=== PATIENT | male | born 1960 | race Caucasian/White ===

== ENCOUNTER 2018-11-30 12:17 | Inpatient (IN) ==
[2018-11-30] MEDS ORDERED: GLUCOSE 10 TABS/TUBE PO PRN (17:44)
[2018-11-30] MEDS ORDERED: NITROGLYCERIN SL 0.4 MG/TAB TAB SL PRN (17:44)
[2018-11-30] MEDS ORDERED: ACETAMINOPHEN 325 MG TAB PO PRN (17:44)
[2018-11-30] MEDS ORDERED: GLUCOSE 40% GEL 15 GM TUBE PO PRN (17:44)
[2018-11-30] MEDS ORDERED: ALUMINUM/MAGNESIUM SUSP 30 ML UDC PO PRN (17:44)
[2018-11-30] MEDS ORDERED: GLUCAGON FOR INJ 1 MG VIAL SQ PRN (17:44)
[2018-11-30] MEDS ORDERED: MAGNESIUM HYDROXIDE SUSP 30 ML UDC PO PRN (17:44)
[2018-11-30] MEDS ORDERED: CARBOHYDRATES FOR HYPOGLYCEMIA PO PRN (17:44)
[2018-11-30] MEDS ORDERED: POLYETHYLENE (MIRALAX) 17 GM PACK PO PRN (17:44)
[2018-11-30] MEDS ORDERED: ONDANSETRON INJ 2 MG/ML 2 ML VIAL IV PRN (17:44)
[2018-11-30] MEDS ORDERED: DEXTROSE 50% 50 ML SYRINGE IV PRN (17:44)
[2018-11-30 18:16] LABS: Basophils # (auto) 0.02 K/uL (0-0.2); Basophils % (auto) 0.1 %; Eosinophils # (auto) 0.01 K/uL (0-0.5); Eosinophils % (auto) 0.1 %; Hematocrit (blood only) 41.6 % (42-52); Immature Granulocytes # (auto) 0.05 K/uL (0.00-0.02); Immature Granulocytes % (auto) 0.3 %; Lymphocytes # (auto) 0.53 K/uL (1.2-3.4); Lymphocytes % (auto) 3.3 %; Mean Corpuscular Hemoglobin 30.3 pg (25-34); Mean Corpuscular Hgb Conc 33.7 g/dL (32-36); Mean Platelet Volume 8.7 fL (7.4-10.4); Monocytes # (auto) 0.04 K/uL (0.11-0.59); Monocytes % (auto) 0.2 %; Neutrophils # (auto) 15.42 K/uL (1.4-6.5); Platelet Count 250 K/uL (130-400); RDW Coefficient of Variation 14.2 % (11.5-14.5); RDW Standard Deviation 46.4 fL (36.4-46.3); Red Blood Count 4.62 M/uL (4.7-6.1); White Blood Count 16.07 K/uL (4.8-10.8)
[2018-11-30] MEDS ORDERED: cloNIDine HCL 0.1 MG TAB PO PRN (18:26)
[2018-11-30 18:33] LABS: Albumin Level 1.5 gm/dl (3.4-5.0); Calcium 7.8 mg/dl (8.5-10.1); Creatinine Clr Calc Pharmacy 35.4 ml/min; Est GFR (African American) 34.1; Est GFR (Non-African American) 29.4; Magnesium 2.2 mg/dl (1.8-2.4); Potassium 3.2 mmol/L (3.5-5.1)
--- NOTE | 2018-11-30 18:34 | History & Physical Report ---
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 At [facility] per reports patient was significantly hypertensive with systolic blood pressure greater than 200s, elevated proBNP 6169, elevated d-dimer 1.3, creatinine 2.2, W BC 12.2, H&H 13.1 40.0 Troponin WNL and chest x-ray without acute abnormality, ecg NSR w/o ST wave change Due to elevated creatinine CTA chest not performed, patient was recommended for transfer to [facility] Lab work obtained at our facility revealed WBC 16k, elevated trop 0.115, BNP 7594, Bun 24, Cr 2.35, K 3.2 Ddx but not limited to: Acute decompensated CHF, ACS, progression of nephrotic syndrome, cardiomyopathy, amyloidosis, bronchitis, asthma exac, ADR to drug brilinta, among others Pt admitted to [facility] tele Troponin at OSH 0.05, now 0.115 (also elevated d-dimer and inability to perform CTA given cr) start low dose IV heparin echocardiogram ordered cycle troponin and ecg consult cardiology CXR ordered - await results bilateral lower extremity venous doppler VQ scan for elevated dimer clonidine 0.1mg prn for SBP > 160 (3) Hypokalemia: K 3.2 give 40meq x 1 now maintain K >4.0 given hx of CAD and elevated troponin (4) Elevated WBC count: pt afebrile wbc at OSH was 12k, now 16k He did receive steroids SHAKE FEEDER afebrile, CXR pending monitor closely, check procal (5) CAD (coronary artery disease), [place] coronary artery: hx of PCI in 08/2018 and 2006 on ASA, Brilinta, Atenolol losartan recently d/c due to progressive worse GFR pt admits to not being compliant with above medications (6) HTN (hypertension): blood pressure significantly elevated continue atenolol clonidine prn (7) CKD (chronic kidney disease) stage 3, GFR 30-59 ml/min: Baseline creatinine 1.5, has been climbing to 2.3-2.5 BUN/creatinine 24 and 2.35 today Patient has been following with nephrology Dr. Adame due to progressively worse kidney function, GFR and significant proteinuria Recently had losartan, metformin and amlodipine discontinued due to worsening renal function hx of membranous glomerular nephritis in 2003 he had edema and proteinuria and high cholesterol. At that time had renal biopsy and treated with brief course of steroid. Had extensive outpatient testing including hep B, C, HIV, Bence-Grant protein, immunofixation, complement C4, C3, c-ANCA, p-ANCA, ASHOK. Work-up mostly negative except elevated kappa and lambda Patient is being referred to hematology for further work-up of myeloma (8) Elevated TSH: TSH 7.55, Free T4 0.65 no prior outpt comparison may be elevated in setting of acute illness recommend repeat in 2 weeks (9) Asthma: continue advair place on duoneb qid, incentive spirometry received 125mg IV solumedrol at OSH ED CXR ordered (10) Dyslipidemia, goal LDL below 70: Patient intolerant to statins On Repatha injections as outpatient Last cholesterol panel 11/12 revealed elevated total cholesterol 233, LDL 159, HDL 49, glycerides 193 (11) T2DM (type 2 diabetes mellitus): A1c 11/12 was 6.3 Now off metformin due to elevated creatinine Lantus/novolog per protocol expect elevated glucose given steroid at OSH (12) ASHLEE (obstructive sleep apnea): noncompliant with cpap (13) Abnormal CT scan, chest: CT scan 07/29/18: IMPRESSION 4.7 cm ascending thoracic aortic aneurysm. Mediastinal adenopathy. Mild bilateral central peribronchial thickening. Incompletely characterized liver hypodensities and left renal hypodensity. Right paravertebral soft tissue thickening at the level of the mid thorax Questionable wall thickening of the coronary arteries. Asymmetric appearance of the pancreas. Differential diagnosis includes a multi systemic disorder like IgG4 disease. Lymphoma is also a consideration. Recommend CT of the chest abdomen and pelvis with IV Recommend follow up (14) DVT prophylaxis: SCD/TEDS IV heparin Disposition: admit to [facility] tele Follow up: PCP Dr. Kendrick upon discharge; along with appropriate follow up with Nephrology Patient was seen and examined in collaboration with Dr. Foster, please see addendum Starting 12/01/18 patient will be under the care of Dr. Valdez History of Present Illness Chief Complaint: LEYVA x 6-9 months. 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 and daughter are at bedside patient initially presented to ED this morning secondary significant increased shortness of breath and inability to catch breath. Upon arrival to ED patient was noted to have significantly elevated blood pressure systolically greater than 200, EKG revealed normal sinus rhythm, elevated creatinine 2.2, elevated d-dimer 1.5, elevated BNP 6000. Chest x-ray unremarkable. Unable to obtain CTA of chest given elevated creatinine. Patient was recommended for transfer due to the above. He did receive DuoNeb therapy, IV methylprednisolone and IV hydralazine while in the ED. Patient complains of worsening shortness of breath that has been becoming progressively worse over the past 6 to 9 months. As noted above patient had PCI in 08/2018 due to abnormal stress echo. He was hopeful that after having stent placed his symptoms would improve. He had similar symptoms back in 2006 prior to his previous stent, and after stent felt much improved. This time he has been continuing to have progressive dyspnea on exertion as well as shortness of breath at rest. He has easy fatigability even with little activity. 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 Even using a broom makes him short of breath. Over the past 4 days he has noticed increased sinus congestion, rhinorrhea and moist cough, but unable to produce. He has felt feverish and had night sweats. Complains of increased lower extremity edema that is present all day, not improved in a.m. Denies any significant weight loss or weight gain. Denies orthopnea but does complain PND. Denies documented fever, chills, lightheadedness, dizziness, syncope, chest pain, palpitations, hemoptysis, nausea, vomiting, abdominal pain, dysuria, increased urgency or frequency with urination, hematuria, melena, hematochezia. He admits to being noncompliant with his medications. Only taking aspirin 3 times a week, has been intermittently taking Brilinta. He has also been taking atenolol off-and-on secondary to headaches. He takes his Advair intermittently, but has been using albuterol nebulizer treatment at home more frequently. He uses nebulizer treatment this morning prior to being seen at ED, without significant relief. He has not been taking anything [id number]. Allergies Allergy/AdvReac Type Severity Reaction Status Date / Time No Known Allergies Allergy Verified 08/20/18 09:34 Home Medications Home Medications Medication Instructions Recorded Confirmed Type Karen Garnica See Rx Instructions .ROUTE .COMPLEX 08/19/18 11/30/18 History albuterol sulfate [ProAir HFA] 2 puff INHALATION Q6H PRN 08/19/18 11/30/18 History aspirin [Aspir-81] 81 mg PO MOWEFR 08/19/18 11/30/18 History fluticasone propion-salmeterol 1 inh INHALATION BID 08/19/18 11/30/18 History [Advair Diskus] fluticasone propionate [Flonase 2 spray INTRANASAL DAILY 08/19/18 11/30/18 History Allergy Relief] metformin 500 mg PO DAILY 08/19/18 11/30/18 History ticagrelor [Brilinta] 90 mg PO BID #60 tab 08/21/18 11/30/18 Rx atenolol 25 mg PO BID 11/30/18 11/30/18 History Past Med/Surg History Medical History History of left heart catheterization History of membranous glomerulonephritis Asthma ASHLEE (obstructive sleep apnea) T2DM (type 2 diabetes mellitus) AAA (abdominal aortic aneurysm) Ascending aortic aneurysm 4.5 cm; followed by Cardiology Dyslipidemia, goal LDL below 70 HTN (hypertension) Presence of drug-eluting stent in left circumflex coronary artery CAD (coronary artery disease), [place] coronary artery Surgical History Status post insertion of drug-eluting stent into left anterior descending (LAD) artery Family History Mother Cancer Father Lung disease Social History Preferred Language: [place] Communication Ability: Effective Children'S Counselor Required: No Beliefs That Will Affect Care: None Current Living Situation: Spouse current occupational status: employed current occupation: works as flexographic printing machinist Other Information That Helps Us Care for You: No Feels Safe at Home: Yes Safety Concerns: Feels Safe At This Time Smoking Status: Never smoker Hx Alcohol Use: No Hx Substance Use: No Review of Systems Review of Systems: All systems reviewed & are unremarkable except as noted in HPI & below Physical Exam Physical Exam: Constitutional: WD/WN, vitals as above, M, appears ill, NAD, sitting up in bed, pleasant, conversing easily Head: Normocephalic, Atraumatic Eyes: PERRL, conjunctivae normal, anicteric sclerae ENMT: external ear and nose normal, oropharynx normal Neck: trachea midline, no thyromegaly normal visual inspection Respiratory: normal respiratory effort, lungs clear to auscultation with inspiratory and expiratory wheeze/rhonchi throughout, no prolonged expiratory phase,no rales. Normal insp/exp effort, no accessory muscle use on 2L of O2 via NC Cardiovascular: RRR, no murmur, +1 pretibial edema R >L Vessels: no JVD or carotid bruit Chest: normal inspection of chest Abdomen: normal bowel sounds, soft, nontender, no hepatosplenomegaly Musculoskeletal: no cyanosis or clubbing, extremities motor strength 5/5 Skin: no rashes, warm and dry normal turgor Neurologic: PERRL, EOMI, accommodation nl, no face palsy, no dysarthria CN's II-XI intact bilaterally and moves all extremities Psychiatric: A+Ox3, euthymic affect Lymphatic: no cervical or axillary lymphadenopathy : deferred Results & Data Vital Signs (Past 12 Hours) Vital Signs Temp Pulse Pulse Resp BP Pulse Ox 11/30/18 16:14 110 H 11/30/18 16:09 36.6 C 116 H 22 134/91 96 Laboratory Results Short CBC 11/30/18 Range/Units 18:07 WBC 16.07 H (4.8-10.8) K/uL Hgb 14.0 (14.0-18.0) g/dL Hct 41.6 L (42-52) % Plt Count 250 (130-400) K/uL BMP 11/30/18 18:07 Sodium 142 Potassium 3.2 L Chloride 112 H Carbon Dioxide 21 BUN 24 H Creatinine 2.35 H Glucose 228 H Calcium 7.8 L Cardiac Enzymes 11/30/18 Range/Units 18:07 Troponin I 0.115 H* (0-0.045) ng/ml Liver Function 11/30/18 Range/Units 18:07 Total Bilirubin 0.3 (0.2-1) mg/dl AST 16 (15-37) U/L ALT 13 (12-78) U/L Alkaline Phosphatase 60 (45-117) U/L Albumin 1.5 L (3.4-5.0) gm/dl Diagnostic Findings CXR: pending Code Status & VTE Plan VTE Prophylaxis Plan VTE Prophylaxis will be ordered: Yes Supervising Physician Co-Signing Physician Notes HISTORY: Record reviewed. Patient interviewed and examined in his room. Care coordinated with Lorna Patten PA-C; please refer to her note for detailed documentation for patient's history. Briefly, 58-year-old male with history of ischemic heart disease (status post PCI of LAD and obtuse marginal with drug-eluting stents in August 2018), hypertension, asthma, sleep apnea, diabetes mellitus, CKD, possible gammopathy, and other problems as detailed. Presented to [facility]'s ED earlier today complaining of worsening dyspnea over past week. He feels like he has had a cold with some chest congestion and nonproductive cough. No fever. Notes dyspnea on exertion, but no chest pain / pressure. Has also noted dependent edema that developed over the past week. Transferred to [facility] for further evaluation and management. Comfortable at time of my assessment. No chest pain. No dyspnea at rest. EXAM: General- no distress Lungs- diffuse mild wheezing; no respiratory distress Cardiovascular- RRR; tachycardic; no murmur appreciated; no gallop appreciated; slight JVD; 1+ pretibial edema Abdomen- + bowel sounds, soft, nontender Extremities- no cyanosis; no calf tenderness Neuro- alert, oriented Skin- warm & dry DATA: Hemoglobin 14.0, white count 16,070, platelet count 250,000. Sodium 142, potassium 3.2, chloride 112, CO2 21, BUN 24, creatinine 2.35, random glucose 228. Troponin I = 0.115. BNP = 7594. Albumin 1.5. Globulin 5.2. Albumin/globulin ratio 0.3. TSH 7.55. Free T4 0.65. Other lab studies as noted. Chest x-ray reviewed by the undersigned and formally interpreted by Radiology. No apparent infiltrates, effusions, CHF. EKG performed at 20:[address] at 104 / minute, biphasic T- waves V4-5. ASSESSMENT AND PLAN: Patient experiencing dyspnea on exertion. Underlying coronary artery disease with drug-eluting stents to LAD and obtuse marginal in August 2018. Patient indicates that he may not be taking his antiplatelet medications on a regular basis. Troponin slightly elevated. EKG shows biphasic T waves in lateral precordial leads. Must consider myocardial ischemia. History, exam, and elevated BNP suggest CHF, but not apparent on plain films of chest. 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 Hematology consult pending. Consider amyloidosis. Has albuminuria. May have nephrotic syndrome. D-dimer elevated at [facility]. Best not to pursue CTA of chest in light of elevated creatinine. Venous duplex of lower extremities negative for DVT. V/Q scan ordered. IV heparin will be initiated in light of elevated d-dimer with pending V/Q and possibility of an acute coronary syndrome. Continue antiplatelet therapy with aspirin and ticagrelor. Continue atenolol. Receiving evolocumab. Check lipid profile. Check echo. Consult Cardiology. CKD with worsening renal function and albuminuria being followed by Nephrology. Hematology consultation pending regarding possible gammopathy. Avoid potential nephrotoxins when able. Consult Nephrology if any acute concerns. Serum potassium 3.2. Replace, follow. Diabetes mellitus type 2 managed with metformin. Check hemoglobin A1c. Hold metformin during hospital stay. Lantus/NovoLog per protocol. TSH 7.55 with a free T4 of 0.65. No history of hypothyroidism. TFTs may be abnormal due to acute illness. Start low-dose levothyroxine and follow as outpatient. WBC elevated. Received methylprednisolone at [facility]. No apparent indication for antibiotics at this time. Please refer to ADAM Patten's documentation for discussion of other issues. (1) CAD (coronary artery disease), [place] coronary artery Associated angina: with stable angina [place] vs. transplanted heart: [place] heart Qualified Code(s): I25.118 - Atherosclerotic heart disease of [place] coronary artery with other forms of angina pectoris (2) HTN (hypertension) Hypertension type: essential hypertension Qualified Code(s): I10 - Essential (primary) hypertension
[2018-11-30 18:48] LABS: Albumin Globulin Ratio 0.3 (0.9-2); Bilirubin,Total 0.3 mg/dl (0.2-1); Globulin 5.2 gm/dl (2.5-4.0); Phosphorus 3.2 mg/dl (2.5-4.9); Thyroid Stimulating Hormone 7.55 uIu/ml (0.300-4.500); Total Protein 6.7 gm/dl (6.4-8.2); Troponin I 0.115 ng/ml (0-0.045)
[2018-11-30 19:04] LABS: T4 Free Thyroxine 0.65 ng/dl (0.8-1.6)
[2018-11-30] MEDS ORDERED: POTASSIUM CHLORIDE 20 MEQ TABCR PO STA (19:12)
--- NOTE | 2018-11-30 19:48 | Ultrasound Report ---
BILATERAL LOWER EXTREMITY VENOUS DOPPLER HISTORY: Lower extremity edema, elevated d dimer COMPARISON STUDY: None. FINDINGS: There is normal compressibility, flow, and augmentation within the bilateral lower extremit y deep venous systems. IMPRESSION: No DVT within the right or left lower extremity. Electronically signed by: Damien Cano M.D. 11/30/2018 7:47 PM
[2018-11-30] MEDS: ALBUT/IPRATROP 3MG/0.5MG NEB 3 ML VIAL NEB SCH (19:50)
--- NOTE | 2018-11-30 20:07 | XRay Report ---
XR chest 2V routine HISTORY: Shortness of breath. COMPARISON: None. FINDINGS: The heart is normal in size. No pleural effusions. No pneumothorax. No evidence for pulmona ry edema. A few small bibasilar linear densities consistent with subsegmental atelectasis or scarring . Otherwise, the lungs are clear. No focal lung consolidations to suggest pneumonia. IMPRESSION: No acute process. Electronically signed by: Damien Cano M.D. 11/30/2018 8:05 PM
[2018-11-30] MEDS ORDERED: INSULIN GLARGINE SOLOSTAR 100 UNITS/ML 3 ML PEN SC SCH (21:00)
[2018-11-30] MEDS ORDERED: POTASSIUM CHLORIDE 20 MEQ TABCR PO ONE (21:14)
[2018-11-30] MEDS: HEPARIN SODIUM/DEXTROSE 25,000 UNITS/500 ML BAG IV SCH (21:21)
[2018-11-30] MEDS: INSULIN ASPART 100 UNITS/ML 3 ML PEN SC SCH ×2 (21:24→21:32)
[2018-11-30] MEDS: FLUTICASONE/SALMETEROL 250/50 (ADVAIR) 14 PUFF/1 INHALER INH SCH (21:26)
[2018-11-30] MEDS: TICAGRELOR 90 MG TAB PO SCH (21:33)
[2018-11-30] MEDS: ATENOLOL 25 MG TABLET PO SCH (21:34)
[2018-12-01 04:00] LABS: Partial Thromboplastin Ratio 1.1; Partial Thromboplastin Time 29.7 Seconds (21.0-31.0)
[2018-12-01 05:14] LABS: Partial Thromboplastin Ratio 1.1; Partial Thromboplastin Time 29.6 Seconds (21.0-31.0)
[2018-12-01] MEDS ORDERED: HEPARIN IV BOLUS 4,500 UNITS in SYRINGE 0 ML IV ONE ×2 (05:50→12:00)
[2018-12-01] MEDS: LEVOTHYROXINE SODIUM 25 MCG TABLET PO SCH (06:11)
[2018-12-01 06:51] LABS: Basophils # (auto) 0.02 K/uL (0-0.2); Basophils % (auto) 0.1 %; Hematocrit (blood only) 38.5 % (42-52); Hemoglobin 12.8 g/dL (14.0-18.0); Immature Granulocytes # (auto) 0.08 K/uL (0.00-0.02); Immature Granulocytes % (auto) 0.4 %; Lymphocytes # (auto) 1.26 K/uL (1.2-3.4); Lymphocytes % (auto) 6.4 %; Mean Corpuscular Hemoglobin 29.6 pg (25-34); Mean Corpuscular Hgb Conc 33.2 g/dL (32-36); Mean Corpuscular Volume 88.9 fL (80-100); Monocytes # (auto) 0.65 K/uL (0.11-0.59); Monocytes % (auto) 3.3 %; Neutrophils # (auto) 17.82 K/uL (1.4-6.5); Neutrophils % (auto) 89.8 %; Platelet Count 246 K/uL (130-400); RDW Coefficient of Variation 14.3 % (11.5-14.5); RDW Standard Deviation 46.6 fL (36.4-46.3); Red Blood Count 4.33 M/uL (4.7-6.1); White Blood Count 19.83 K/uL (4.8-10.8)
[2018-12-01] MEDS: ALBUT/IPRATROP 3MG/0.5MG NEB 3 ML VIAL NEB SCH ×4 (07:06→19:13)
[2018-12-01 07:25] LABS: BUN Creatinine Ratio 14.1 (10-20); Creatinine Clr Calc Pharmacy 35.7 ml/min; Est GFR (African American) 34.4; Est GFR (Non-African American) 29.7; Potassium 4.1 mmol/L (3.5-5.1); Troponin I 0.098 ng/ml (0-0.045)
[2018-12-01] MEDS: Heparin IV Low Dose *NO* Bolus IV SCH (07:45)
[2018-12-01] MEDS: FLUTICASONE/SALMETEROL 250/50 (ADVAIR) 14 PUFF/1 INHALER INH SCH ×2 (08:58→21:06)
[2018-12-01] MEDS: INSULIN ASPART 100 UNITS/ML 3 ML PEN SC SCH ×4 (08:58→21:05)
[2018-12-01] MEDS: INSULIN GLARGINE SOLOSTAR 100 UNITS/ML 3 ML PEN SC SCH ×2 (08:59→21:05)
[2018-12-01] MEDS: FLUTICASONE PROPIONATE NA SPR 16 GM BTL SCH (09:00)
[2018-12-01] MEDS: TICAGRELOR 90 MG TAB PO SCH ×2 (09:01→21:07)
[2018-12-01] MEDS: ATENOLOL 25 MG TABLET PO SCH (09:01)
[2018-12-01 09:47] LABS: Appearance Urine Clear (Clear); Bacteria Urine Automated Negative (Negative); Bilirubin Urine Negative (Negative); Blood Urine 2+ (Negative); Color Urine Yellow; Epithelial Cell Urine Auto >30 /lpf (0-5); Glucose Urine UA 2+ (Negative); Ketones Urine Negative (Negative); Leukocyte Esterase Urine Negative (Negative); Nitrite Urine Negative (Negative); Protein Urine 4+ (Negative); Specific Gravity Urine 1.029 (1.000-1.030); Urobilinogen Urine Negative (Negative); pH Urine 6.5 (4.5-7.5)
[2018-12-01 11:36] LABS: Partial Thromboplastin Ratio 1.5; Partial Thromboplastin Time 39.6 Seconds (21.0-31.0)
[2018-12-01] MEDS: HEPARIN SODIUM/DEXTROSE 25,000 UNITS/500 ML BAG IV SCH ×2 (12:17→18:42)
--- NOTE | 2018-12-01 13:42 | Cardiology Consultation ---
Date of Consultation December 01, 2018 Assessment & Plan (1) Shortness of breath: Patient short of breath with elevated d-dimer. Unable to perform a CT angiogram due to renal insufficiency, and therefore a ventilation/perfusion scan is tentatively planned, but due to availability of nuclear medicine, will likely not be performed until 12/02/2018. Patient remains on heparin infusion in the meantime. I am not certain that his presentation is suggestive of unstable angina. He has a mild however blunted, troponin elevation, and his EKG actually looks better compared to the tracing performed immediately post PCI. Subjectively, describes that the shortness of breath that prompted his LAD and circumflex stents in August, has not improved. I question if perhaps his chronic dyspnea is been exacerbated by the use of Brilinta, and when I think we need to consider transitioning him to clopidogrel. The patient is also had issues with adherence. He tells me he has been taking the Brilinta with only missing a few doses, perhaps once a day dosing of clopidogrel would be easier for him to follow. The patient's mild troponin elevation of course takes place in the setting of renal insufficiency, which makes this troponin elevation difficult to interpret. Agree with continuing him on heparin until PE is excluded, and pending further observation. Chest x-ray is without significant change to suggest heart failure, and his ejection fraction and grade 1 diastolic dysfunction are stable compared to the prior echo in Jul, 2018. (2) CAD (coronary artery disease), [place]da coronary artery: Continue aspirin and Brilinta for now, will discuss transitioning him from Brilinta to clopidogrel when Dr. Winston is available tomorrow. (3) History of membranous glomerulonephritis: Patient with recent worsening renal function, previous baseline creatinine had been in the range of 1.5-6 up to a month ago, now in the range of 2.40 2.5 mg/dL. I see no definite indication for diuretic therapy at present. Losartan on hold as per recommendations documented in the outpatient nephrology notes. Outpatient hematology evaluation planned for elevated kappa and lambda chains. Patient's recent edema could very well be due to his nephrotic range proteinuria. Recent serum albumin was 1.5 on 11/30/2018 . (4) HTN (hypertension): Patient has a history of uncontrolled hypertension as well as long- standing this nonadherence of medications. Given his renal insufficiency, I have discontinued atenolol, favoring metoprolol tartrate. The patient has expressed intolerance of this medication in the past. I encouraged him that I think this is the best medication for him as it is cardiac selective, and safe in patients with kidney dysfunction. The patient's losartan had recently been discontinued due to worsening creatinine. He had been on amlodipine 2.5 mg daily, which given his recent lower extremity edema, this is been placed on hold. At this time, we will place him on short acting isosorbide dinitrate and hydralazine. The patient has a photograph of his legs taken yesterday and they were significantly edematous, this has resolved as of today. History of Present Illness Attending Physician: King Valdez MD History of Present Illness Michael Joseph is a 58 year old male seen in cardiology consultation per the request of Dr Foster for the evaluation of shortness of breath. The patient is well- known to our service. His primary radiation oncologist is Dr. Drew Winston, however I had also previously seen him in Jul, 2018 at the time of an abnormal stress echocardiogram. The patient presents describing recent lower extremity edema, and shortness of breath over the last few days. Approximately 4 days ago he came down with what he describes as cold symptoms with feeling cough and runny nose and worsening shortness of breath. Yesterday he noted significant lower extremity edema and therefore he presented for evaluation to [facility] and was then transferred to [facility] as his recent cardiac care had been here. He denies any recent chest heaviness or chest pain. He describes ongoing shortness of breath with exertion which has actually been ongoing for well over a year and had prompted his most recent ischemic evaluation. He states that the shortness of breath had not improved since placement of his recent LAD and circumflex coronary stents. Cardiac / Vascular History and Problem List: 1. Chronic coronary heart disease, status post stent to the proximal LAD in 2006, this was patent with 30% in-stent restenosis at the time of most recent cardiac catheterization at the [facility] in August, 2. Abnormal exercise stress echocardiogram 07/29/2018 suggestive of ischemia which prompted cardiac catheterization 08/20/2017 with findings of 80% mid LAD stenosis, 90% obtuse marginal stenosis both of which were treated with drug- eluting stents. A residual 90% stenosis of diagonal branch #2 of the LAD has been treated medically 3. Uncontrolled hypertension 4. 4.7 cm ascending thoracic aortic aneurysm most recently measured on noncontrast CT of the chest 08/13/2018, [facility] 5. 3.2 cm abdominal aortic aneurysm 6. Chronic kidney disease with history of remote diagnosis of membranous glomerulonephritis, 9 g of proteinuria, and recent decline in kidney function. Patient's calculated GFR has been in the range of 47 to 50 mL/min/m, creatinine 1.5-1.6 at the time of his cardiac catheterization in August,, and most recently on 10/18/2018, has recently worsened as of November with measurement of creatinine of 2.4 on 11/25/2018, calculated GFR 28 mL/min/m 7. Recent finding of abnormal serum kappa and lambda levels on recent levels drawn 11/14/18, nephrology had recommended hematology evaluation which has yet to have been performed. Allergies Allergy/AdvReac Type Severity Reaction Status Date / Time No Known Allergies Allergy Verified 08/20/18 09:34 Home Medications Home Medications Medication Instructions Recorded Confirmed Type Karen Garnica See Rx Instructions .ROUTE .COMPLEX 08/19/18 11/30/18 History albuterol sulfate [ProAir HFA] 2 puff INHALATION Q6H PRN 08/19/18 11/30/18 History aspirin [Aspir-81] 81 mg PO MOWEFR 08/19/18 11/30/18 History fluticasone propion-salmeterol 1 inh INHALATION BID 08/19/18 11/30/18 History [Advair Diskus] fluticasone propionate [Flonase 2 spray INTRANASAL DAILY 08/19/18 11/30/18 History Allergy Relief] metformin 500 mg PO DAILY 08/19/18 11/30/18 History ticagrelor [Brilinta] 90 mg PO BID #60 tab 08/21/18 11/30/18 Rx atenolol 25 mg PO BID 11/30/18 11/30/18 History Patient History Medical History History of left heart catheterization History of membranous glomerulonephritis Asthma ASHLEE (obstructive sleep apnea) T2DM (type 2 diabetes mellitus) AAA (abdominal aortic aneurysm) Ascending aortic aneurysm 4.5 cm; followed by Cardiology Dyslipidemia, goal LDL below 70 HTN (hypertension) Presence of drug-eluting stent in left circumflex coronary artery CAD (coronary artery disease), [place] coronary artery Surgical History Status post insertion of drug-eluting stent into left anterior descending (LAD) artery Family History Mother Cancer Father Lung disease Social History Preferred Language: Romansh Communication Ability: Effective Social Services Counselor Required: No Beliefs That Will Affect Care: None Current Living Situation: Spouse current occupational status: employed current occupation: works as through operator Other Information That Helps Us Care for You: No Feels Safe at Home: Yes Safety Concerns: Feels Safe At This Time Smoking Status: Never smoker Hx Alcohol Use: No Hx Substance Use: No Review of Systems Review of Systems: All systems reviewed & are unremarkable except as noted in HPI & below Physical Exam Physical Exam: Temp Pulse Resp BP Pulse Ox 36.8 C 83 18 148/79 H 95 12/01/18 11:00 12/01/18 11:01 12/01/18 11:01 12/01/18 11:00 12/01/18 11:01 Constitutional: WD/WN, vitals as above Respiratory: normal respiratory effort, lungs clear to auscultation Cardiovascular: RRR, no murmur, no edema Gastrointestinal (Abdomen): normal bowel sounds, soft, nontender, no hepatosplenomegaly Skin: no rashes, warm and dry Neurologic: PERRL, EOMI, accommodation nl, no face palsy, no dysarthria Results & Data Vital Signs (Past 12 Hours) Vital Signs Temp Pulse Resp BP Pulse Ox 12/01/18 11:01 83 18 95 12/01/18 11:00 36.8 C 79 18 148/79 H 98 12/01/18 10:42 93 12/01/18 07:06 87 18 97 12/01/18 07:00 36.6 C 83 20 167/98 H 100 12/01/18 04:00 36.5 C 86 20 156/90 H 96 Laboratory Results Cardiac Enzymes 11/30/18 12/01/18 12/01/18 Range/Units 18:07 00:20 06:28 AST 16 (15-37) U/L Troponin I 0.115 H* 0.114 H* 0.098 H* (0-0.045) ng/ml Coagulation 12/01/18 12/01/18 12/01/18 Range/Units 03:27 04:52 11:13 APTT 29.7 29.6 39.6 H (21.0-31.0) Seconds Lipids 12/01/18 Range/Units 06:28 Triglycerides 77 (0-150) mg/dl Cholesterol 171 (0-200) mg/dl HDL Cholesterol 59 mg/dl Cholesterol/HDL Ratio 3 CBC 11/30/18 12/01/18 Range/Units 18:07 06:28 WBC 16.07 H 19.83 H (4.8-10.8) K/uL RBC 4.62 L 4.33 L (4.7-6.1) M/uL Hgb 14.0 12.8 L (14.0-18.0) g/dL Hct 41.6 L 38.5 L (42-52) % Plt Count 250 246 (130-400) K/uL Neut # (Auto) 15.42 H 17.82 H (1.4-6.5) K/uL Lymph # (Auto) 0.53 L 1.26 (1.2-3.4) K/uL [place] # (Auto) 0.04 L 0.65 H (0.11-0.59) K/uL Eos # (Auto) 0.01 0.00 (0-0.5) K/uL Baso # (Auto) 0.02 0.02 (0-0.2) K/uL Comprehensive Metabolic Panel 11/30/18 12/01/18 Range/Units 18:07 06:28 Sodium 142 143 (136-145) mmol/L Potassium 3.2 L 4.1 D (3.5-5.1) mmol/L Chloride 112 H 112 H (98-107) mmol/L Carbon Dioxide 21 22 (21-32) mmol/L BUN 24 H 33 H (7-18) mg/dl Creatinine 2.35 H 2.33 H (0.6-1.4) mg/dl Glucose 228 H 144 H (70-99) mg/dl Calcium 7.8 L 8.0 L (8.5-10.1) mg/dl AST 16 (15-37) U/L ALT 13 (12-78) U/L Alkaline Phosphatase 60 (45-117) U/L Total Protein 6.7 (6.4-8.2) gm/dl Albumin 1.5 L (3.4-5.0) gm/dl Intake and Output 11/30/18 12/01/18 12/01/18 22:59 06:59 14:59 Intake Total 894.533 / 894.533 151.1 / 151.1 Balance 894.533 / 894.533 151.1 / 151.1 Intake: IV 154.533 / 154.533 151.1 / 151.1 HEPARIN SODIUM/DEXTROSE 25,000 154.533 / 154.533 151.1 / 151.1 units In 500 ml @ 1,250 UNITS/ HR 25 mls/hr IV .Q20H LUIS ENRIQUE Rx#: [id number] Oral 740 / 740 Other: Weight 86.1 kg 87.3 kg Diagnostic Findings EKG performed 11/30/2018 at 2026 hrs. reveals sinus tachycardia 104 bpm, biphasic T wave morphology noted in the lateral precordial leads, compared to the prior EKG tracing performed post stent on 08/20/2018, more prominent deep T wave inversions were noted in the lateral leads at that time. EKG performed 12/01/2018 6:37 AM and reviewed independently normal sinus rhythm at 84 bpm, mild nonspecific ST abnormality with T wave inversion noted in lead V2 and V4, once again less prominent than his immediate post stent EKG performed in August,. Echocardiogram performed 12/01/2018 and reviewed independently by the undersigned: There is a small sized inferior wall motion abnormality encompassing the basal and mid segments The left ventricular systolic function is in the lower limit of normal with qualitative ejection fraction in the range of 50-55%. The right ventricular chamber size and systolic function are normal. Mild mitral regurgitation is present. Grade 1 diastolic dysfunction is present. There is no pericardial effusion. Compared to the report of the exercise stress echocardiogram performed at [facility] dated 07/29/2018 the subtle inferior wall motion abnormality was noted at rest at the time of that study as well the ejection fraction is relatively unchanged. Medications Administered Current Inpatient Medications Acetaminophen (Tylenol) 325 mg PO Q6H PRN PRN Reason: Pain or Fever Stop: 12/30/18 17:43 Al Hydrox/Mg Hydrox/Simethicone (Maalox) 15 ml PO Q4H PRN PRN Reason: Dyspepsia Stop: 12/30/18 17:43 Albuterol (Duoneb) 3 ml NEB QIDR LUIS ENRIQUE Stop: 12/30/18 18:59 Last Admin: 12/01/18 11:00 Dose: 3 ml Documented by: Aspirin (Ecotrin Ectab) 81 mg PO MoWeFr@0900 [facility] Stop: 01/01/19 08:59 Atenolol (Tenormin) 25 mg PO BID [facility] Stop: 12/30/18 20:59 Last Admin: 12/01/18 09:01 Dose: 25 mg Documented by: Clonidine HCl (Catapres) 0.1 mg PO Q4H PRN PRN Reason: Hypertension Stop: 12/30/18 18:25 Dextrose (Dextrose 50%) 25 - 50 ml IV UD PRN; Protocol PRN Reason: Hypoglycemia Protocol Stop: 12/30/18 17:43 Fluticasone Propionate (Flonase) 2 sprays NA DAILY [facility] Stop: 12/31/18 08:59 Last Admin: 12/01/18 09:00 Dose: 2 sprays Documented by: Glucagon (Glucagen) 1 mg SQ UD PRN; Protocol PRN Reason: Hypoglycemia Protocol Stop: 12/30/18 17:43 Glucose (Glucose 40%) 15 - 30 gm PO UD PRN; Protocol PRN Reason: Hypoglycemia Protocol Stop: 12/30/18 17:43 Glucose (Dex4 Glucose) 4 - 8 tabs PO UD PRN; Protocol PRN Reason: Hypoglycemia Protocol Stop: 12/30/18 17:43 Heparin Sodium/Dextrose (Heparin Sodium/Dextrose) 25,000 units in 500 mls @ 25 mls/hr IV .Q20H LUIS ENRIQUE; Protocol Stop: 12/30/18 18:59 Last Admin: 12/01/18 12:17 Dose: 1,250 units/hr, 25 mls/hr Documented by: Insulin Aspart (Novolog Flexpen) 0 units SC ACHS [facility] Stop: 12/30/18 17:59 Last Admin: 12/01/18 12:19 Dose: 9 units Documented by: Insulin Glargine (Lantus Solostar Pen) 0 units SC BID [facility]; Protocol Stop: 12/30/18 20:59 Last Admin: 12/01/18 08:59 Dose: 4 units Documented by: Levothyroxine Sodium (Synthroid) 25 mcg PO DAILYBB [facility] Stop: 12/31/18 06:29 Last Admin: 12/01/18 06:11 Dose: 25 mcg Documented by: Magnesium Hydroxide (Milk Of Magnesia) 30 ml PO Q12H PRN PRN Reason: Constipation Stop: 12/30/18 17:43 Miscellaneous (Carbohydrates For Hypoglycemia) 15 - 30 gm PO UD PRN PRN Reason: Hypoglycemia Treatment Stop: 12/30/18 17:43 Nitroglycerin (Nitrostat) 0.4 mg SL UD PRN PRN Reason: Chest Pain Stop: 12/30/18 17:43 Ondansetron HCl (Zofran) 4 mg IV Q6H PRN PRN Reason: Nausea Stop: 12/30/18 17:43 Polyethylene Glycol (Miralax Powder Packet) 17 gm PO DAILY PRN PRN Reason: Constipation Stop: 12/30/18 17:43 Fluticasone/Salmeterol (Advair Diskus 250/50) 1 puffs INH BID [facility] Stop: 12/30/18 20:59 Last Admin: 12/01/18 08:58 Dose: 1 puffs Documented by: Ticagrelor (Brilinta) 90 mg PO BID [facility] ENRI[facility] Stop: 12/30/18 20:59 Last Admin: 12/01/18 09:01 Dose: 90 mg Documented by: (1) CAD (coronary artery disease), [place]opda coronary artery [place] vs. transplanted heart: [place] heart Associated angina: with stable angina Qualified Code(s): I25.118 - Atherosclerotic heart disease of [place]choop[place] coronary artery with other forms of angina pectoris (2) HTN (hypertension) Hypertension type: essential hypertension Qualified Code(s): I10 - Essential (primary) hypertension
[2018-12-01] MEDS: ISOSORBIDE DINITRATE 5 MG TAB PO SCH ×2 (14:25→18:04)
[2018-12-01] MEDS: HydrALAZINE 10 MG TAB PO SCH ×2 (14:25→21:06)
--- NOTE | 2018-12-01 16:24 | Hospitalist Progress Note ---
Date of Service December 01, 2018 Assessment & Plan (1) Shortness of breath: -multiple differentials were proposed at time of hospital presentation which patient was transferred from [facility] on 11/30/18 to [facility] -to summarize, this is a patient whose chief complaint with shortness of breath on moderate exertion (such as moderate activities such as walking the distance from driveway to house or when putting bags into the car) -patient has cardiac history included cardiac stents and cardiology consult was consulted -because patient had initial elevated troponins of 0.115 (which has not gotten any higher and no apparent chest pain) admitting hospitalist team started patient on IV heparin and because of elevated D-Dimer at [facility] also proposed to rule out pulmonary embolism but CTA cannot be performed due to Chronic kidney disease -The is No DVT within the right or left lower extremity on 11/30/18 ultrasound -V/Q scan that was ordered by admitting team could not be performed until Sunday12/01/18;if pulmonary embolism is ruled out on Sunday12/01/18, cardiology service may potentially do further invasive workup -at this time of evaluation on 12/01/18, patient's resting echocardiogram on 12/01/18 with relatively normal ejection fraction of 50 to 55% with subtle inferior wall motion abnormality that was also noted on outpatient exercise stress test in July -will continue IV heparin drip for now but should stop if no pulmonary embolism as cardiology service does not suspect unstable angina at this time -chronic dyspnea may be exacerbated by the use of Brilinta and cardiology may consider to transition him to clopidogrel, continued on Brillinta for now -advise patient to be adherent to CPAP for obstructive sleep apnea as below (2) ASHLEE (obstructive sleep apnea): -patient apparently had been evaluated in the past for obstructive sleep apnea but he no longer used it after one time he got respiratory infection from CPAP and because the mask was very tight and the positive pressure made it hard for him to breathe. He is willing to try CPAP in the hospital (3) CAD (coronary artery disease), [place] coronary artery: -Chronic coronary heart disease, status post stent to the proximal LAD in 2006, this was patent with 30% in-stent restenosis at the time of most recent cardiac catheterization at the [facility] in August, -Abnormal exercise stress echocardiogram 07/29/2018 suggestive of ischemia which prompted cardiac catheterization 08/20/2017 with findings of 80% mid LAD stenosis, 90% obtuse marginal stenosis both of which were treated with drug- eluting stents. A residual 90% stenosis of diagonal branch #2 of the LAD has been treated medically -medical workup for dyspnea as above Aortic Aneurysm -as per cardiology consultation review: -4.7 cm ascending thoracic aortic aneurysm most recently measured on noncontrast CT of the chest 08/13/2018, [facility] -3.2 cm abdominal aortic aneurysm (4) Elevated troponin: -patient had initial elevated troponins of 0.115 (which has not gotten any higher and no apparent chest pain) (5) Asthma: continue advair place on duoneb qid, incentive spirometry (6) Dyslipidemia, goal LDL below 70: -Patient intolerant to statins -On Repatha injections as outpatient -lipid panel on this admission with improved LDL of 93 (7) Elevated TSH: Hypothyroidism suspected -TSH 7.55, Free T4 0.65, no prior outpatient comparison -recommend repeat in 2 weeks -if these repeat labs are still with abnormally high TSH and low T4 then can consider a diagnosis of Hypothyroidism -was started on 25 mcg Levothyroxine by admitting hospitalist, continue (8) Elevated WBC count: Leukocytosis -patient received steroids at [facility] prior to hospital transfer to [facility] for which the admission WBC is 16K -WBC uptrending to 23 K on 12/01/18, is afebrile to date (9) HTN (hypertension): -cardiology switched beta barbra from atenolol to metoprolol -cardiology started hydralazine 10 mg TID and isosorbide 5 mg TID (10) CKD (chronic kidney disease) stage 3, GFR 30-59 ml/min: Membranous glomerulonephritis -Chronic kidney disease with history of remote diagnosis of membranous glomerulonephritis, 9 g of proteinuria, and recent decline in kidney function. Patient's calculated GFR has been in the range of 47 to 50 mL/min/m, creatinine 1.5-1.6 at the time of his cardiac catheterization in August,, and most recently on 10/18/2018, has recently worsened as of November with measurement of creatinine of 2.4 on 11/25/2018, calculated GFR 28 mL/min/m -Patient has been following with nephrology Dr. Mainali due to progressively worse kidney function, GFR and significant proteinuria Recently had losartan, metformin and amlodipine discontinued due to worsening renal function -hx of membranous glomerular nephritis in 2003 he had edema and proteinuria and high cholesterol. At that time had renal biopsy and treated with brief course of steroid. Had extensive outpatient testing including hep B, C, HIV, Bence-Grant protein, immunofixation, complement C4, C3, c-ANCA, p-ANCA, ASHOK. Work-up mostly negative except elevated kappa and lambda Patient is being referred to hematology for further work-up of myeloma -monitor renal function (11) Abnormal CT scan, chest: CT scan 07/29/18 comments of "4.7 cm ascending thoracic aortic aneurysm; Mediastinal adenopathy. Mild bilateral central peribronchial thickening; Incompletely characterized liver hypodensities and left renal hypodensity; Right paravertebral soft tissue thickening at the level of the mid thorax;Questionable wall thickening of the coronary arteries; Asymmetric appearance of the pancreas; Differential diagnosis includes a multi systemic disorder like IgG4 disease. Lymphoma is also a consideration." (12) T2DM (type 2 diabetes mellitus): HbA1c 11/12 was 6.3 -Lantus/novolog per protocol -hold metformin, monitor renal function (13) Hypokalemia: -admission serum potassium 3.2 on 11/30/18 -hypokalemia is corrected after potassium supplementation (14) DVT prophylaxis: Subjective Patient seen earlier in AM on nasal cannula. when re-assessed in afternoon, patient breathing on room air. his at bedside and corroborates that main respiratory issues is dyspnea on exertion with moderate activities such as walking the distance from driveway to house or when putting bags into the car. patient denies chest pain. no abdomen pain. no headache. no dizziness. no vomiting patient's also points out patient often gags at night. patient apparently had been evaluated in the past for obstructive sleep apnea but he no longer used it after one time he got respiratory infection from CPAP and because the mask was very tight and the positive pressure made it hard for him to breathe. He is willing to try CPAP in the hospital Physical Exam Constitutional: comfortable Eyes: PERRL, conjunctivae normal, anicteric sclerae EOM intact bilaterally ENMT: external ear and nose normal, oropharynx normal Neck: normal visual inspection Respiratory: normal respiratory effort, lungs clear to auscultation Cardiovascular: Rate/Rhythm: regular rate and regular rhythm Gastrointestinal (Abdomen): normal bowel sounds, soft, nontender, no hepatosplenomegaly Musculoskeletal: Head/Neck/Chest: normocephalic and head atraumatic Neurologic: PERRL, EOMI, accommodation nl, no face palsy, no dysarthria CN's II-XI intact bilaterally Psychiatric: A+Ox3, euthymic affect Results & Data Vital Signs (Past 12 Hours) Vital Signs Temp Pulse Resp BP Pulse Ox 12/01/18 15:34 36.7 C 85 19 146/89 H 98 12/01/18 15:10 80 18 93 12/01/18 11:01 83 18 95 12/01/18 11:00 36.8 C 79 18 148/79 H 98 12/01/18 10:42 93 12/01/18 07:06 87 18 97 12/01/18 07:00 36.6 C 83 20 167/98 H 100 (1) CAD (coronary artery disease), [place] coronary artery Associated angina: with stable angina [place] vs. transplanted heart: [place] heart Qualified Code(s): I25.118 - Atherosclerotic heart disease of [place] coronary artery with other forms of angina pectoris (2) HTN (hypertension) Hypertension type: essential hypertension Qualified Code(s): I10 - Essential (primary) hypertension
[2018-12-01 18:28] LABS: Partial Thromboplastin Ratio 1.6; Partial Thromboplastin Time 42.1 Seconds (21.0-31.0)
[2018-12-01] MEDS ORDERED: HEPARIN IV BOLUS 3,000 UNITS in SYRINGE 0 ML IV ONE (19:00)
[2018-12-01] MEDS: METOPROLOL TARTRATE 25 MG TAB PO SCH (21:07)
[2018-12-02 02:19] LABS: Basophils # (auto) 0.03 K/uL (0-0.2); Basophils % (auto) 0.1 %; Eosinophils # (auto) 0.08 K/uL (0-0.5); Eosinophils % (auto) 0.4 %; Hematocrit (blood only) 35.1 % (42-52); Hemoglobin 11.9 g/dL (14.0-18.0); Immature Granulocytes % (auto) 0.5 %; Lymphocytes # (auto) 2.92 K/uL (1.2-3.4); Lymphocytes % (auto) 13.4 %; Mean Corpuscular Hemoglobin 30.4 pg (25-34); Mean Corpuscular Hgb Conc 33.9 g/dL (32-36); Mean Corpuscular Volume 89.8 fL (80-100); Monocytes # (auto) 0.83 K/uL (0.11-0.59); Monocytes % (auto) 3.8 %; Neutrophils # (auto) 17.86 K/uL (1.4-6.5); Neutrophils % (auto) 81.8 %; Platelet Count 236 K/uL (130-400); RDW Coefficient of Variation 14.8 % (11.5-14.5); Red Blood Count 3.91 M/uL (4.7-6.1); White Blood Count 21.82 K/uL (4.8-10.8)
[2018-12-02 02:37] LABS: Albumin Level 1.4 gm/dl (3.4-5.0); BUN Creatinine Ratio 15.8 (10-20); Calcium 7.3 mg/dl (8.5-10.1); Creatinine Clr Calc Pharmacy 32.7 ml/min; Est GFR (Non-African American) 26.8; Potassium 3.9 mmol/L (3.5-5.1)
[2018-12-02 02:40] LABS: Albumin Globulin Ratio 0.3 (0.9-2); Bilirubin,Total 0.2 mg/dl (0.2-1); Globulin 4.4 gm/dl (2.5-4.0); Total Protein 5.8 gm/dl (6.4-8.2)
[2018-12-02 02:49] LABS: Partial Thromboplastin Ratio 1.8
[2018-12-02 03:07] LABS: Partial Thromboplastin Time 47.6 Seconds (21.0-31.0)
[2018-12-02 05:49] LABS: Estimated Average Glucose 137 mg/dl; Hemoglobin A1C 6.4 % (4.5-5.6)
[2018-12-02] MEDS: ISOSORBIDE DINITRATE 5 MG TAB PO SCH ×3 (06:33→17:22)
[2018-12-02] MEDS: LEVOTHYROXINE SODIUM 25 MCG TABLET PO SCH (06:33)
[2018-12-02 06:34] LABS: Partial Thromboplastin Ratio 1.6
[2018-12-02] MEDS ORDERED: HEPARIN IV BOLUS 3,000 UNITS in SYRINGE 0 ML IV ONE ×2 (07:15→14:50)
[2018-12-02] MEDS: ALBUT/IPRATROP 3MG/0.5MG NEB 3 ML VIAL NEB SCH ×3 (07:17→15:10)
[2018-12-02] MEDS: INSULIN GLARGINE SOLOSTAR 100 UNITS/ML 3 ML PEN SC SCH ×2 (08:24→20:58)
[2018-12-02] MEDS: TICAGRELOR 90 MG TAB PO SCH (08:25)
[2018-12-02] MEDS: METOPROLOL TARTRATE 25 MG TAB PO SCH ×2 (08:25→20:55)
[2018-12-02] MEDS: FLUTICASONE PROPIONATE NA SPR 16 GM BTL SCH (08:25)
[2018-12-02] MEDS: FLUTICASONE/SALMETEROL 250/50 (ADVAIR) 14 PUFF/1 INHALER INH SCH ×2 (08:26→20:55)
[2018-12-02] MEDS: HydrALAZINE 10 MG TAB PO SCH ×3 (08:26→20:55)
[2018-12-02] MEDS: INSULIN ASPART 100 UNITS/ML 3 ML PEN SC SCH ×4 (08:28→20:57)
[2018-12-02] MEDS ORDERED: ASPIRIN 81 MG ECTAB PO SCH (09:00)
--- NOTE | 2018-12-02 09:17 | Cardiology Progress Note ---
Date of Service December 02, 2018 Assessment & Plan (1) Shortness of breath: Patient admitted with dyspnea on exertion with associated lower extremity edema. Echocardiogram is stable with minimally elevated troponin not indicative of acute coronary syndrome. Perfusion/ventilation scan scheduled today. Continue intravenous heparin until results are available. (2) CAD (coronary artery disease), [place] coronary artery: Discontinue Brilinta in favor of clopidogrel 75 mg daily. Patient will receive 300 mg x 1 now. (3) History of membranous glomerulonephritis: Worsening renal function noted (baseline 1.4, now 2.4-2.5). Outpatient hematology evaluation scheduled December 24 for evaluation of elevated kappa and lambda chains. Edema likely secondary to nephrotic range proteinuria with most recent serum albumin 1.4. Losartan discontinued per direction of nephrology. No overt indication for diuretic therapy currently Recommend nephrology consultation. (4) HTN (hypertension): Multiple medication instituted 12/01/2018 changes as noted above. We will continue to monitor today. Consider titration of metoprolol to 50 mg twice daily pending clinical course. Subjective Patient seen and examined the bedside. Feeling better since admission. Denies chest pain or unusual shortness of breath today. Edema markedly improved. No signs/symptoms of GI/ blood loss. Medication alterations instituted since admission including discontinuation of atenolol, and amlodipine. Patient prescribed metoprolol, hydralazine and nitrates. Blood pressure remains elevated. VQ scan pending at this time. Telemetry reviewed demonstrating sinus rhythm and one brief, 6 beat priti, of paroxysmal atrial tachycardia. Patient denies orthopnea or paroxysmal nocturnal dyspnea. Attempted to wear CPAP overnight however found to be quite uncomfortable. Diagnosed with sleep apnea approximately 13 years ago and was unable to wear CPAP due to claustrophobia. Review of Systems Review of Systems: All systems reviewed & are unremarkable except as noted in HPI & below Physical Exam Physical Exam: General: NAD, AAO x3, well nourished. HEENT: Normocephalic. Atraumatic. Conjunctiva pink, no scleral icterus. Neck: No carotid bruits, the carotid upstrokes are brisk. No JVD. No HJR Heart: Regular normal S-1 and S-2 no S-3 or S-4 gallop. No murmurs or rub appreciated. PMI is not displaced. No RV heave. Lungs: Clear bilateral without rales , rhonchi, or wheeze. Abdomen: Normal bowel sounds. Soft. Nontender. No masses or organomegaly. No abdominal bruits. Extremities: Trace to mild bilateral pedal and ankle edema. No clubbing, or cyanosis. Pulses: radial=2/4, Dorsalis pedis =2/4, posterior tibial=2/4. Neuro: Cranial nerves grossly intact. No focal motor deficit. Results & Data Vital Signs (Past 12 Hours) Vital Signs Temp Pulse Pulse Pulse Resp BP BP 12/02/18 07:26 36.7 C 76 18 165/87 H 12/02/18 07:19 86 12/02/18 07:17 44 L 16 12/02/18 04:30 36.3 C L 71 18 162/84 H 12/01/18 23:42 36.6 C 77 20 155/89 H 12/01/18 23:13 78 12/01/18 23:06 82 12/01/18 21:15 82 14 Pulse Ox 12/02/18 07:26 12/02/18 07:19 12/02/18 07:17 95 12/02/18 04:30 94 12/01/18 23:42 94 12/01/18 23:13 12/01/18 23:06 12/01/18 21:15 97 Laboratory Results Laboratory Results - last 24 hr 12/01/18 12/01/18 12/01/18 06:28 09:15 11:13 WBC RBC Hgb Hct MCV MCH MCHC RDW Std Deviation RDW Coeff of Britney Plt Count MPV Immature Gran % (Auto) Neut % (Auto) Lymph % (Auto) [place] % (Auto) Eos % (Auto) Baso % (Auto) Immature Gran # (Auto) Neut # (Auto) Lymph # (Auto) [place] # (Auto) Eos # (Auto) Baso # (Auto) APTT 39.6 H PTT Ratio 1.5 Sodium Potassium Chloride Carbon Dioxide Anion Gap BUN Creatinine Est Cr Clr Drug Dosing Est GFR ( Amer) Est GFR (Non-Af Amer) BUN/Creatinine Ratio Glucose POC Glucose Estimat Average Glucose 137 Hemoglobin A1c 6.4 H Calcium Total Bilirubin AST ALT Alkaline Phosphatase Total Protein Albumin Globulin Albumin/Globulin Ratio Urine Color Yellow Urine Appearance Clear Urine pH 6.5 Ur Specific [place] 1.029 Urine Protein 4+ H Urine Glucose (UA) 2+ H Urine Ketones Negative Urine Blood 2+ H Urine Nitrite Negative Urine Bilirubin Negative Urine Urobilinogen Negative Ur Leukocyte Esterase Negative Urine WBC (Auto) 5-10 H Urine RBC (Auto) 5-10 H U Hyaline Cast (Auto) 10-30 H U Epithel Cells (Auto) >30 H Urine Bacteria (Auto) Negative Ur Renal Epithelial Cell Not Reportable Granular Casts 1-5 H 12/01/18 12/01/18 12/01/18 11:15 16:38 18:07 WBC RBC Hgb Hct MCV MCH MCHC RDW Std Deviation RDW Coeff of Britney Plt Count MPV Immature Gran % (Auto) Neut % (Auto) Lymph % (Auto) [place] % (Auto) Eos % (Auto) Baso % (Auto) Immature Gran # (Auto) Neut # (Auto) Lymph # (Auto) [place] # (Auto) Eos # (Auto) Baso # (Auto) APTT 42.1 H PTT Ratio 1.6 Sodium Potassium Chloride Carbon Dioxide Anion Gap BUN Creatinine Est Cr Clr Drug Dosing Est GFR ( Amer) Est GFR (Non-Af Amer) BUN/Creatinine Ratio Glucose POC Glucose 183 H 120 H Estimat Average Glucose Hemoglobin A1c Calcium Total Bilirubin AST ALT Alkaline Phosphatase Total Protein Albumin Globulin Albumin/Globulin Ratio Urine Color Urine Appearance Urine pH Ur Specific [place] Urine Protein Urine Glucose (UA) Urine Ketones Urine Blood Urine Nitrite Urine Bilirubin Urine Urobilinogen Ur Leukocyte Esterase Urine WBC (Auto) Urine RBC (Auto) U Hyaline Cast (Auto) U Epithel Cells (Auto) Urine Bacteria (Auto) Ur Renal Epithelial Cell Granular Casts 12/01/18 12/02/18 12/02/18 20:30 02:07 02:07 WBC 21.82 H RBC 3.91 L Hgb 11.9 L Hct 35.1 L MCV 89.8 MCH 30.4 MCHC 33.9 RDW Std Deviation 48.0 H RDW Coeff of Britney 14.8 H Plt Count 236 MPV 9.0 Immature Gran % (Auto) 0.5 Neut % (Auto) 81.8 Lymph % (Auto) 13.4 [place] % (Auto) 3.8 Eos % (Auto) 0.4 Baso % (Auto) 0.1 Immature Gran # (Auto) 0.10 H Neut # (Auto) 17.86 H Lymph # (Auto) 2.92 [place] # (Auto) 0.83 H Eos # (Auto) 0.08 Baso # (Auto) 0.03 APTT PTT Ratio Sodium 141 Potassium 3.9 Chloride 110 H Carbon Dioxide 23 Anion Gap 8.0 BUN 40 H Creatinine 2.54 H Est Cr Clr Drug Dosing 32.7 Est GFR ( Amer) 31.0 Est GFR (Non-Af Amer) 26.8 BUN/Creatinine Ratio 15.8 Glucose 112 H POC Glucose 115 H Estimat Average Glucose Hemoglobin A1c Calcium 7.3 L Total Bilirubin 0.2 AST 15 ALT 13 Alkaline Phosphatase 45 Total Protein 5.8 L Albumin 1.4 L Globulin 4.4 H Albumin/Globulin Ratio 0.3 L Urine Color Urine Appearance Urine pH Ur Specific [place] Urine Protein Urine Glucose (UA) Urine Ketones Urine Blood Urine Nitrite Urine Bilirubin Urine Urobilinogen Ur Leukocyte Esterase Urine WBC (Auto) Urine RBC (Auto) U Hyaline Cast (Auto) U Epithel Cells (Auto) Urine Bacteria (Auto) Ur Renal Epithelial Cell Granular Casts 12/02/18 12/02/18 12/02/18 02:07 06:07 07:34 WBC RBC Hgb Hct MCV MCH MCHC RDW Std Deviation RDW Coeff of Britney Plt Count MPV Immature Gran % (Auto) Neut % (Auto) Lymph % (Auto) [place] % (Auto) Eos % (Auto) Baso % (Auto) Immature Gran # (Auto) Neut # (Auto) Lymph # (Auto) [place] # (Auto) Eos # (Auto) Baso # (Auto) APTT 47.6 H* 43.0 H PTT Ratio 1.8 1.6 Sodium Potassium Chloride Carbon Dioxide Anion Gap BUN Creatinine Est Cr Clr Drug Dosing Est GFR ( Amer) Est GFR (Non-Af Amer) BUN/Creatinine Ratio Glucose POC Glucose 112 H Estimat Average Glucose Hemoglobin A1c Calcium Total Bilirubin AST ALT Alkaline Phosphatase Total Protein Albumin Globulin Albumin/Globulin Ratio Urine Color Urine Appearance Urine pH Ur Specific [place] Urine Protein Urine Glucose (UA) Urine Ketones Urine Blood Urine Nitrite Urine Bilirubin Urine Urobilinogen Ur Leukocyte Esterase Urine WBC (Auto) Urine RBC (Auto) U Hyaline Cast (Auto) U Epithel Cells (Auto) Urine Bacteria (Auto) Ur Renal Epithelial Cell Granular Casts (1) CAD (coronary artery disease), [place] coronary artery Associated angina: with stable angina [place] vs. transplanted heart: [place] heart Qualified Code(s): I25.118 - Atherosclerotic heart disease of [place] coronary artery with other forms of angina pectoris (2) HTN (hypertension) Hypertension type: essential hypertension Qualified Code(s): I10 - Essential (primary) hypertension
[2018-12-02] MEDS ORDERED: CLOPIDOGREL BISULFATE 300 MG TAB PO ONE (10:00)
--- NOTE | 2018-12-02 11:26 | Nuclear Medicine Report ---
NUCLEAR MEDICINE VENTILATION/PERFUSION SCAN CLINICAL HISTORY: Elevated d-dimer. COMPARISON: Chest radiograph November 30, 2018. TECHNIQUE: For the ventilation portion of this exam, 30 mCi of DTPA was inhaled at 10:47 AM on 2018. Immediately following inhalation, imaging of the chest was carried out in the anterio r, posterior, left lateral, right lateral, LPO, RPO, URDU and MADRID projections. For the perfusion port ion of exam, 5.2 mCi of technetium 99m MAA was injected IV at 11:05 AM on December 02, 2018. Immedia tely following injection, imaging of the chest was carried out in the same projections. FINDINGS: There is a moderate-sized mismatched defect within the right mid lung on anterior projecti on. No additional mismatched defects are identified. Central radiotracer deposition is noted on the v entilation portion of this exam. IMPRESSION: Moderate-sized mismatch defect within the right mid lung on anterior projection. This st udy is intermediate probability for pulmonary embolus. Electronically signed by: Teo Cheema M.D. 12/02/2018 11:24 AM
[2018-12-02] MEDS ORDERED: LEVALBUTEROL 1.25MG/0.5ML NEB NEB STA (12:03)
[2018-12-02] MEDS: HEPARIN SODIUM/DEXTROSE 25,000 UNITS/500 ML BAG IV SCH (13:17)
[2018-12-02 13:20] LABS: Prothrombin Time 9.8 Seconds (9.0-12.0)
[2018-12-02] MEDS ORDERED: WARFARIN SOD 5 MG TAB PO ONE (13:23)
[2018-12-02 14:45] LABS: Partial Thromboplastin Ratio 1.6; Partial Thromboplastin Time 44.4 Seconds (21.0-31.0)
--- NOTE | 2018-12-02 16:18 | Hospitalist Progress Note ---
Date of Service December 02, 2018 Assessment & Plan (1) Shortness of breath: -multiple differentials were proposed at time of hospital presentation which patient was transferred from [facility] on 11/30/18 to [facility] -to summarize, this is a patient whose chief complaint with shortness of breath on moderate exertion (such as moderate activities such as walking the distance from driveway to house or when putting bags into the car) -patient has cardiac history included cardiac stents and cardiology consult was consulted -because patient had initial elevated troponins of 0.115 (which has not gotten any higher and no apparent chest pain) admitting hospitalist team started patient on IV heparin and because of elevated D-Dimer at [facility] and also proposed to rule out pulmonary embolism but CTA cannot be performed due to Chronic kidney disease -The is No DVT within the right or left lower extremity on 11/30/18 ultrasound. However pre-test embolism probability could be consider high given history of Membranous glomerulonephritis and history of elevated kappa and lambda concerning to need further work-up of possible myeloma by hematology/oncology -patient's resting echocardiogram on 12/01/18 with relatively normal ejection fraction of 50 to 55% with subtle inferior wall motion abnormality that was also noted on outpatient exercise stress test in July -advise patient to be adherent to CPAP for obstructive sleep apnea - NUCLEAR MEDICINE VENTILATION/PERFUSION SCAN on 12/01/18 Moderate-sized mismatch defect within the right mid lung on anterior projection. This study is intermediate probability for pulmonary embolus. warfarin 5 mg given on 12/02/18 and will need to continue heparin IV with daily coumadin until INR reaches 2 to 3 (2) Acute pulmonary embolism without acute cor pulmonale: -NUCLEAR MEDICINE VENTILATION/PERFUSION SCAN on 12/01/18 Moderate-sized mismatch defect within the right mid lung on anterior projection. This study is intermediate probability for pulmonary embolus. warfarin 5 mg given on 12/02/18 and will need to continue heparin IV with daily coumadin until INR reaches 2 to 3 (3) ASHLEE (obstructive sleep apnea): -patient apparently had been evaluated in the past for obstructive sleep apnea but he no longer used it after one time he got respiratory infection from CPAP and because the mask was very tight and the positive pressure made it hard for him to breathe. -trial of CPAP in the hospital (4) CAD (coronary artery disease), [place] coronary artery: -Chronic coronary heart disease, status post stent to the proximal LAD in 2007, this was patent with 30% in-stent restenosis at the time of most recent cardiac catheterization at the [facility] in August, -Abnormal exercise stress echocardiogram 07/29/2018 suggestive of ischemia which prompted cardiac catheterization 08/20/2017 with findings of 80% mid LAD stenosis, 90% obtuse marginal stenosis both of which were treated with drug- eluting stents. A residual 90% stenosis of diagonal branch #2 of the LAD has been treated medically -to avoid potential shortness of breath from Brillinta, cardiology service discontinue Brilinta in favor of clopidogrel 75 mg daily. Patient received 300 mg x 1 clopidogrel on 12/02/18 and to get 75 mg daily clopidogrel starting on 12/02/18 -medical workup for dyspnea as above Aortic Aneurysm -as per cardiology consultation review: -4.7 cm ascending thoracic aortic aneurysm most recently measured on noncontrast CT of the chest 08/13/2018, [facility] -3.2 cm abdominal aortic aneurysm (5) Elevated troponin: -patient had initial elevated troponins of 0.115 (which has not gotten any higher and no apparent chest pain) (6) Asthma: -continue advair -duoneb prn, incentive spirometry (7) Dyslipidemia, goal LDL below 70: -Patient intolerant to statins -On Repatha injections as outpatient -lipid panel on this admission with improved LDL of 93 (8) Elevated TSH: Hypothyroidism suspected -TSH 7.55, Free T4 0.65, no prior outpatient comparison -recommend repeat in 2 weeks -if these repeat labs are still with abnormally high TSH and low T4 then can consider a diagnosis of Hypothyroidism -was started on 25 mcg Levothyroxine by admitting hospitalist, continue (9) Elevated WBC count: Leukocytosis -patient received steroids at [facility] prior to hospital transfer to [facility] for which the admission WBC is 16K -WBC uptrending to 22 K on 12/02/18, is afebrile to date (10) HTN (hypertension): -cardiology switched beta barbra from atenolol to metoprolol -cardiology started hydralazine 10 mg TID and isosorbide 5 mg TID (11) CKD (chronic kidney disease) stage 3, GFR 30-59 ml/min: Membranous glomerulonephritis JENNIFER on CKD stage 3 vs CKD stage IV -Chronic kidney disease with history of remote diagnosis of membranous glomerulonephritis, 9 g of proteinuria, and recent decline in kidney function. Patient's calculated GFR has been in the range of 47 to 50 mL/min/m, creatinine 1.5-1.6 at the time of his cardiac catheterization in August,, and most recently on 10/18/2018, has recently worsened as of November with measurement of creatinine of 2.4 on 11/25/2018, calculated GFR 28 mL/min/m -Patient has been following with nephrology Dr. Adame due to progressively worse kidney function, GFR and significant proteinuria Recently had losartan, metformin and amlodipine discontinued due to worsening renal function -hx of membranous glomerular nephritis in 2003 he had edema and proteinuria and high cholesterol. At that time had renal biopsy and treated with brief course of steroid. Had extensive outpatient testing including hep B, C, HIV, Bence-Grant protein, immunofixation, complement C4, C3, c-ANCA, p-ANCA, ASHOK. Work-up mostly negative except elevated kappa and lambda Patient is being referred to hematology for further work-up of myeloma -will obtain nephrology consult as inpatient and send random urine protein on this hospitalization (12) Abnormal CT scan, chest: CT scan 07/29/18 comments of "4.7 cm ascending thoracic aortic aneurysm; Mediastinal adenopathy. Mild bilateral central peribronchial thickening; Incompletely characterized liver hypodensities and left renal hypodensity; Right paravertebral soft tissue thickening at the level of the mid thorax;Questionable wall thickening of the coronary arteries; Asymmetric appearance of the pancreas; Differential diagnosis includes a multi systemic disorder like IgG4 disease. Lymphoma is also a consideration." (13) T2DM (type 2 diabetes mellitus): HbA1c 11/12 was 6.3 -Lantus/novolog per protocol -hold metformin, monitor renal function (14) Hypokalemia: -admission serum potassium 3.2 on 11/30/18 -hypokalemia is corrected after potassium supplementation (15) DVT prophylaxis: IV heparin drip, first dose of warfarin 5 mg given on 12/02/18 and will need to continue heparin IV with daily coumadin until INR reaches 2 to 3 Subjective NUCLEAR MEDICINE VENTILATION/PERFUSION SCAN on 12/01/18 Moderate-sized mismatch defect within the right mid lung on anterior projection. This study is intermediate probability for pulmonary embolus. warfarin 5 mg given on 12/02/18 and will need to continue heparin IV with daily coumadin until INR reaches 2 to 3. discussed at length with patient and his . patient breathing on room air. no shortness of breath at rest. no chest pain. no palpitations. no acute back or flank pain. able to eat the meals. no vomiting. no lightheadedness. no dizziness. Physical Exam Constitutional: comfortable Eyes: PERRL, conjunctivae normal, anicteric sclerae EOM intact bilaterally ENMT: external ear and nose normal, oropharynx normal Neck: normal visual inspection Respiratory: normal respiratory effort, lungs clear to auscultation Cardiovascular: Rate/Rhythm: regular rate and regular rhythm Gastrointestinal (Abdomen): normal bowel sounds, soft, nontender, no hepatosplenomegaly Musculoskeletal: Head/Neck/Chest: normocephalic and head atraumatic Neurologic: PERRL, EOMI, accommodation nl, no face palsy, no dysarthria CN's II-XI intact bilaterally Psychiatric: A+Ox3, euthymic affect Results & Data Vital Signs (Past 12 Hours) Vital Signs Temp Pulse Pulse Pulse Resp BP BP 12/02/18 15:54 36.9 C 90 20 150/97 H 12/02/18 15:12 74 16 12/02/18 13:35 90 158/87 H 12/02/18 12:49 36.5 C 79 18 180/109 H 12/02/18 12:35 66 18 12/02/18 07:26 36.7 C 76 18 165/87 H 12/02/18 07:19 86 12/02/18 07:17 44 L 16 12/02/18 04:30 36.3 C L 71 18 162/84 H Pulse Ox 12/02/18 15:54 93 12/02/18 15:12 95 12/02/18 13:35 12/02/18 12:49 99 12/02/18 12:35 95 12/02/18 07:26 12/02/18 07:19 12/02/18 07:17 95 12/02/18 04:30 94 (1) CAD (coronary artery disease), [place] coronary artery Associated angina: with stable angina [place] vs. transplanted heart: [place] heart Qualified Code(s): I25.118 - Atherosclerotic heart disease of [place] coronary artery with other forms of angina pectoris (2) HTN (hypertension) Hypertension type: essential hypertension Qualified Code(s): I10 - Essential (primary) hypertension
[2018-12-02] MEDS ORDERED: ALBUT/IPRATROP 3MG/0.5MG NEB 3 ML VIAL NEB PRN (16:25)
[2018-12-02] MEDS: ACETAMINOPHEN 325 MG TAB PO PRN (20:57)
[2018-12-02] MEDS ORDERED: CLOPIDOGREL BISULFATE 300 MG TAB PO SCH (21:00)
[2018-12-02 21:45] LABS: Partial Thromboplastin Time 53.5 Seconds (21.0-31.0)
[2018-12-03] MEDS ORDERED: HydrALAZINE HCL 20 MG/ML VIAL IV ONE (04:06)
[2018-12-03] MEDS: LEVOTHYROXINE SODIUM 25 MCG TABLET PO SCH (05:55)
[2018-12-03] MEDS: ISOSORBIDE DINITRATE 5 MG TAB PO SCH ×3 (05:55→16:27)
[2018-12-03 06:07] LABS: Basophils # (auto) 0.15 K/uL (0-0.2); Basophils % (auto) 0.9 %; Eosinophils # (auto) 1.16 K/uL (0-0.5); Eosinophils % (auto) 7.2 %; Hematocrit (blood only) 41.7 % (42-52); Hemoglobin 14.1 g/dL (14.0-18.0); Immature Granulocytes # (auto) 0.13 K/uL (0.00-0.02); Immature Granulocytes % (auto) 0.8 %; Lymphocytes # (auto) 4.32 K/uL (1.2-3.4); Lymphocytes % (auto) 26.7 %; Mean Corpuscular Hemoglobin 30.7 pg (25-34); Mean Corpuscular Hgb Conc 33.8 g/dL (32-36); Mean Corpuscular Volume 90.7 fL (80-100); Mean Platelet Volume 9.2 fL (7.4-10.4); Monocytes # (auto) 0.93 K/uL (0.11-0.59); Monocytes % (auto) 5.7 %; Neutrophils % (auto) 58.7 %; Platelet Count 266 K/uL (130-400); RDW Coefficient of Variation 14.7 % (11.5-14.5); RDW Standard Deviation 48.8 fL (36.4-46.3); White Blood Count 16.19 K/uL (4.8-10.8)
[2018-12-03] MEDS: HEPARIN SODIUM/DEXTROSE 25,000 UNITS/500 ML BAG IV SCH ×2 (06:21→23:31)
[2018-12-03 06:43] LABS: Albumin Level 1.6 gm/dl (3.4-5.0); BUN Creatinine Ratio 16.9 (10-20); Est GFR (African American) 37.1; Potassium 3.6 mmol/L (3.5-5.1)
[2018-12-03 06:44] LABS: INR 0.9 (0.9-1.1); Partial Thromboplastin Ratio 1.7; Prothrombin Time 9.6 Seconds (9.0-12.0)
[2018-12-03] MEDS ORDERED: LIDOCAINE HCL 4% w/ Afrin 4 ML VIAL STA (06:45)
[2018-12-03 06:46] LABS: Albumin Globulin Ratio 0.3 (0.9-2); Bilirubin,Total 0.2 mg/dl (0.2-1); Globulin 4.9 gm/dl (2.5-4.0); Partial Thromboplastin Time 46.1 Seconds (21.0-31.0); Total Protein 6.5 gm/dl (6.4-8.2)
[2018-12-03] MEDS ORDERED: OXYMETAZOLINE 0.05% 30 ML BTL ONE (07:40)
[2018-12-03] MEDS ORDERED: OXYMETAZOLINE 0.05% 30 ML BTL PRN (07:40)
[2018-12-03] MEDS: INSULIN ASPART 100 UNITS/ML 3 ML PEN SC SCH ×4 (08:05→21:06)
[2018-12-03] MEDS: INSULIN GLARGINE SOLOSTAR 100 UNITS/ML 3 ML PEN SC SCH ×2 (08:06→21:06)
[2018-12-03] MEDS: FLUTICASONE/SALMETEROL 250/50 (ADVAIR) 14 PUFF/1 INHALER INH SCH ×2 (08:06→21:05)
[2018-12-03] MEDS: HydrALAZINE 10 MG TAB PO SCH ×3 (08:06→21:05)
[2018-12-03] MEDS: METOPROLOL TARTRATE 25 MG TAB PO SCH ×3 (08:07→21:07)
--- NOTE | 2018-12-03 08:07 | Cardiology Progress Note ---
Date of Service December 03, 2018 Assessment & Plan (1) Acute pulmonary embolism without acute cor pulmonale: Continue IV heparin bridging therapy at this time. Dose Coumadin daily for goal INR of 2.0-3.0. Patient is not a candidate for the lack or Lovenox due to renal dysfunction. (2) CAD (coronary artery disease), [place] coronary artery: Brilinta discontinued in favor of clopidogrel. (3) History of membranous glomerulonephritis: Worsening renal function noted (baseline 1.4, now 2.4-2.5). Outpatient hematology evaluation scheduled December 24 for evaluation of elevated kappa and lambda chains. Edema likely secondary to nephrotic range proteinuria with most recent serum albumin 1.4. Losartan discontinued per direction of nephrology. No overt indication for diuretic therapy currently Consider nephrology consultation. (4) HTN (hypertension): Multiple medication instituted 12/01/2018 changes as noted above. Increase metoprolol to 25mg TID. Subjective Patient seen and examined at the bedside. Reports fatigue this morning. No chest pain or unusual shortness of breath. Reports feeling of "coldness". Denies palpitations, lightheadedness, dizziness, syncope, or near syncope. Ventilation/perfusion scan intermediate probability for pulmonary embolus. Oral Coumadin initiated. No signs/symptoms of GI/ blood loss. Review of Systems Review of Systems: All systems reviewed & are unremarkable except as noted in HPI & below Physical Exam Physical Exam: General: NAD, AAO x3, well nourished. HEENT: Normocephalic. Atraumatic. Conjunctiva pink, no scleral icterus. Neck: No carotid bruits, the carotid upstrokes are brisk. No JVD. No HJR Heart: Regular normal S-1 and S-2 no S-3 or S-4 gallop. No murmurs or rub appreciated. PMI is not displaced. No RV heave. Lungs: Clear bilateral without rales , rhonchi, or wheeze. Abdomen: Normal bowel sounds. Soft. Nontender. No masses or organomegaly. No abdominal bruits. Extremities: Trace to mild bilateral pedal and ankle edema. No clubbing, or cyanosis. Pulses: radial=2/4, Dorsalis pedis =2/4, posterior tibial=2/4. Neuro: Cranial nerves grossly intact. No focal motor deficit. Results & Data Vital Signs (Past 12 Hours) Vital Signs Temp Pulse Pulse Resp BP BP Pulse Ox 12/03/18 07:33 89 12/03/18 07:27 36.5 C 93 H 18 158/59 H 97 12/03/18 04:11 36.8 C 74 19 170/107 H 176/103 H 91 12/02/18 23:58 75 12/02/18 23:30 36.4 C L 77 20 151/87 H 95 Laboratory Results Laboratory Results - last 24 hr 12/02/18 12/02/18 12/02/18 12:08 13:02 13:02 WBC RBC Hgb Hct MCV MCH MCHC RDW Std Deviation RDW Coeff of Britney Plt Count MPV Immature Gran % (Auto) Neut % (Auto) Lymph % (Auto) [place] % (Auto) Eos % (Auto) Baso % (Auto) Immature Gran # (Auto) Neut # (Auto) Lymph # (Auto) [place] # (Auto) Eos # (Auto) Baso # (Auto) PT 9.8 INR 1.0 APTT Cancelled 44.4 H PTT Ratio Cancelled 1.6 Sodium Potassium Chloride Carbon Dioxide Anion Gap BUN Creatinine Est Cr Clr Drug Dosing Est GFR ( Amer) Est GFR (Non-Af Amer) BUN/Creatinine Ratio Glucose POC Glucose 74 Calcium Total Bilirubin AST ALT Alkaline Phosphatase Total Protein Albumin Globulin Albumin/Globulin Ratio 12/02/18 12/02/18 12/02/18 16:04 20:25 21:03 WBC RBC Hgb Hct MCV MCH MCHC RDW Std Deviation RDW Coeff of Britney Plt Count MPV Immature Gran % (Auto) Neut % (Auto) Lymph % (Auto) [place] % (Auto) Eos % (Auto) Baso % (Auto) Immature Gran # (Auto) Neut # (Auto) Lymph # (Auto) [place] # (Auto) Eos # (Auto) Baso # (Auto) PT INR APTT 53.5 H* PTT Ratio 2.0 Sodium Potassium Chloride Carbon Dioxide Anion Gap BUN Creatinine Est Cr Clr Drug Dosing Est GFR ( Amer) Est GFR (Non-Af Amer) BUN/Creatinine Ratio Glucose POC Glucose 106 H 71 Calcium Total Bilirubin AST ALT Alkaline Phosphatase Total Protein Albumin Globulin Albumin/Globulin Ratio 12/03/18 12/03/18 12/03/18 05:55 05:55 05:55 WBC 16.19 H RBC 4.60 L Hgb 14.1 Hct 41.7 L MCV 90.7 MCH 30.7 MCHC 33.8 RDW Std Deviation 48.8 H RDW Coeff of Britney 14.7 H Plt Count 266 MPV 9.2 Immature Gran % (Auto) 0.8 Neut % (Auto) 58.7 Lymph % (Auto) 26.7 [place] % (Auto) 5.7 Eos % (Auto) 7.2 Baso % (Auto) 0.9 Immature Gran # (Auto) 0.13 H Neut # (Auto) 9.50 H Lymph # (Auto) 4.32 H [place] # (Auto) 0.93 H Eos # (Auto) 1.16 H Baso # (Auto) 0.15 PT 9.6 INR 0.9 APTT 46.1 H* PTT Ratio 1.7 Sodium 141 Potassium 3.6 Chloride 112 H Carbon Dioxide 21 Anion Gap 8.0 BUN 37 H Creatinine 2.19 H D Est Cr Clr Drug Dosing 38.0 Est GFR ( Amer) 37.1 Est GFR (Non-Af Amer) 32.0 BUN/Creatinine Ratio 16.9 Glucose 92 POC Glucose Calcium 8.0 L Total Bilirubin 0.2 AST 25 ALT 20 Alkaline Phosphatase 57 Total Protein 6.5 Albumin 1.6 L Globulin 4.9 H Albumin/Globulin Ratio 0.3 L 12/03/18 07:27 WBC RBC Hgb Hct MCV MCH MCHC RDW Std Deviation RDW Coeff of Britney Plt Count MPV Immature Gran % (Auto) Neut % (Auto) Lymph % (Auto) [place] % (Auto) Eos % (Auto) Baso % (Auto) Immature Gran # (Auto) Neut # (Auto) Lymph # (Auto) [place] # (Auto) Eos # (Auto) Baso # (Auto) PT INR APTT PTT Ratio Sodium Potassium Chloride Carbon Dioxide Anion Gap BUN Creatinine Est Cr Clr Drug Dosing Est GFR ( Amer) Est GFR (Non-Af Amer) BUN/Creatinine Ratio Glucose POC Glucose 94 Calcium Total Bilirubin AST ALT Alkaline Phosphatase Total Protein Albumin Globulin Albumin/Globulin Ratio (1) CAD (coronary artery disease), [place] coronary artery Associated angina: with stable angina [place] vs. transplanted heart: [place] heart Qualified Code(s): I25.118 - Atherosclerotic heart disease of [place] coronary artery with other forms of angina pectoris (2) HTN (hypertension) Hypertension type: essential hypertension Qualified Code(s): I10 - Essential (primary) hypertension
[2018-12-03] MEDS: FLUTICASONE PROPIONATE NA SPR 16 GM BTL SCH (08:08)
[2018-12-03] MEDS ORDERED: CLOPIDOGREL BISULFATE 75 MG TAB PO SCH ×2 (09:00)
--- NOTE | 2018-12-03 10:10 | Nephrology Consultation ---
Date of Consultation December 03, 2018 Assessment & Plan (1) Nephrotic syndrome: pt w/ 4 gm proteinuria as OP earlier this month and already w/ creatinine in current range at that time. negative serologic work up except for elevated kappa, lambda (but ratio wnl). remote hx reportedly of membranous GN; records not available -recommend that [facility] check anti phospholipase A2 receptor and get renal bx, resume ARB >care discussed w/ Dr Valdez > pt to go to [facility] Present on Admission?: Yes (2) Acute kidney injury superimposed on CKD: subacutebut progressive jennifer >> creat has been in low 2's this month as OP and inpt w/ 4 gm proteinuria noted at OP clinic visit last month. prior baseline 1.2-1.3 spring 2018, then 1.5-1.6 in late october, then 2.2-2.4 in Nov, as both inpt and OP -recommend renal bx and bp control as below Present on Admission?: Yes (3) Acute pulmonary embolism without acute cor pulmonale: on heparin gtt; may relate to NS; recommend renal bx before oral AC - hold further warfarin dosing pending renal bx (4) HTN (hypertension): on metoprolol 25 mg tid (just upped today), hydralazine 10 mg tid (just started 12/01). hx of intolerance (? type-per cardiology c/s) to metoprolol in past but appears to be tolerating; also with large edema on presentation possi mckinley in part d/t 2.5 mg daily amlodipine + proteinuria -cont above meds current dose -needs ultimately to resume losartan but would cont to hold for now Present on Admission?: Yes History of Present Illness Reason for Consultation: JENNIFER Requesting Physician: Dr Valdez Attending Physician: King Valdez MD History of Present Illness 58 y/o M whom I'm asked to see for JENNIFER was admitted here on 11/30 for dyspnea, recently worsening edema, and elevated troponin. 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 He was transferred here from [facility] for dynovant health eval after he presented there w/ SBP in 200s, creatinine 2.2, WBC 12K, worsening dyspnea and edema. No IV contrast was given d/t JENNIFER in eval at that hospital or here. His creatinine on presentation on 11/30 was 2.4; peaked yesterday at 2.5; today is 2.2. Other chemistries have been wnl except for mild hyperchloremia. Cardiology is following pt and considers his coronary function to be relatively stable. Noted recently to have elevated kappa/lambda chains w/ normal ratio for which OP hematology eval planned. He follows w/ my partner Dr Adame in CKD clinic; noted to have creatinine 1.5-1.6 (w/ prior baseline 1.2-1.3) at October OV w/ emerging nephrotic range proteinuria noted in 4 gm daily range. Losartan was started at that OV -- had been started/stopped several times that summer. Repeat labs this month showed creatinine 2.3-2.4, ongoing despite stopping losartan. serologic w/u for proteinuria negative. His serum albumin as OP earlier this month was 2.2-2.4; now is 1.4. Allergies Allergy/AdvReac Type Severity Reaction Status Date / Time No Known Allergies Allergy Verified 08/20/18 09:34 Home Medications Home Medications Medication Instructions Recorded Confirmed Type Karen Garnica See Rx Instructions .ROUTE .COMPLEX 08/19/18 11/30/18 History albuterol sulfate [ProAir HFA] 2 puff INHALATION Q6H PRN 08/19/18 11/30/18 History aspirin [Aspir-81] 81 mg PO MOWEFR 08/19/18 11/30/18 History fluticasone propion-salmeterol 1 inh INHALATION BID 08/19/18 11/30/18 History [Advair Diskus] fluticasone propionate [Flonase 2 spray INTRANASAL DAILY 08/19/18 11/30/18 History Allergy Relief] metformin 500 mg PO DAILY 08/19/18 11/30/18 History ticagrelor [Brilinta] 90 mg PO BID #60 tab 08/21/18 11/30/18 Rx atenolol 25 mg PO BID 11/30/18 11/30/18 History clopidogrel 75 mg PO QAM 30 Days #30 tab 12/03/18 Rx hydralazine 10 mg PO TID 30 Days #90 tab 12/03/18 Rx isosorbide dinitrate 5 mg PO TID@0700,1200,1700 30 Days 12/03/18 Rx #90 tab levothyroxine 25 mcg PO DAILY 30 Days #30 tab 12/03/18 Rx metoprolol tartrate 25 mg PO Q8 30 Days #90 tab 12/03/18 Rx Patient History Medical History History of left heart catheterization History of membranous glomerulonephritis Asthma ASHLEE (obstructive sleep apnea) T2DM (type 2 diabetes mellitus) AAA (abdominal aortic aneurysm) Ascending aortic aneurysm 4.5 cm; followed by Cardiology Dyslipidemia, goal LDL below 70 HTN (hypertension) Presence of drug-eluting stent in left circumflex coronary artery CAD (coronary artery disease), [place] coronary artery Surgical History Status post insertion of drug-eluting stent into left anterior descending (LAD) artery Family History Mother Cancer Father Lung disease Social History Preferred Language: [place] Communication Ability: Effective Exercise Scientist Required: No Beliefs That Will Affect Care: None Current Living Situation: Spouse current occupational status: employed current occupation: works as machinist first class Other Information That Helps Us Care for You: No Feels Safe at Home: Yes Safety Concerns: Feels Safe At This Time Smoking Status: Never smoker Hx Alcohol Use: No Hx Substance Use: No Review of Systems Review of Systems: All systems reviewed & are unremarkable except as noted in HPI & below Constitutional: as per Subjective / HPI Eyes: no worsening vision Ear, Nose, Mouth, Throat: no dry mouth Respiratory: sob has improved Cardiovascular: + edema (improved; was present < 1 day); no chest pain and no palpitations Gastrointestinal: no abdominal pain, no vomiting and no diarrhea/loose stools Genitourinary: no dysuria, no urinary frequency and no hematuria Musculoskeletal: no joint pain, no myalgia and no muscle weakness Integumentary: no rash and no non-healing lesions Neurologic: no falls Endocrine: + fatigue Hematologic / Lymphatic: no easy bleeding Physical Exam Constitutional: well developed and well nourished sitting on side of bed on ra Eyes: EOM intact bilaterally ENMT: Ears: no external ear abnormality Nose: no external nose abnormality Mouth: + dry oral mucous membranes Neck: no nuchal rigidity Respiratory: normal respiratory effort Auscultation: + diminished lung sounds and + wheezes (insp BL) Cardiovascular: Rate/Rhythm: regular rate and regular rhythm Extremities: + edema (at very most trace BL ankle) Gastrointestinal (Abdomen): Inspection/Auscultation: normal bowel sounds Percussion/Palpation: abdomen soft; abdomen nontender Musculoskeletal: no cyanosis or clubbing, extremities motor strength 5/5 Extremities: strength 5/5 throughout Skin: no rashes, warm and dry Neurologic: wilson, fluent speech, no tremor Psychiatric: A+Ox3, euthymic affect Results & Data Vital Signs (Past 12 Hours) Vital Signs Temp Pulse Pulse Resp BP BP Pulse Ox 12/03/18 07:33 89 12/03/18 07:27 36.5 C 93 H 18 158/59 H 97 12/03/18 04:11 36.8 C 74 19 170/107 H 176/103 H 91 12/02/18 23:58 75 12/02/18 23:30 36.4 C L 77 20 151/87 H 95 Laboratory Results 12/03/18 05:55 12/03/18 05:55 Diagnostic Findings VQ scan Moderate-sized mismatch defect within the right mid lung on anterior pro jection. This study is intermediate probability for pulmonary embolus. BLE Dopplers > no DVT CXR>> no acute process (1) Acute pulmonary embolism without acute cor pulmonale Pulmonary embolism type: other Qualified Code(s): I26.99 - Other pulmonary embolism without acute cor pulmonale (2) HTN (hypertension) Hypertension type: essential hypertension Qualified Code(s): I10 - Essential (primary) hypertension
[2018-12-03] MEDS: ACETAMINOPHEN 325 MG TAB PO PRN (11:46)
--- NOTE | 2018-12-03 14:04 | Hospitalist Progress Note ---
Date of Service December 03, 2018 Assessment & Plan (1) Shortness of breath: -multiple differentials were proposed at time of hospital presentation which patient was transferred from [facility] on 11/30/18 to [facility] -to summarize, this is a patient whose chief complaint with shortness of breath on moderate exertion (such as moderate activities such as walking the distance from driveway to house or when putting bags into the car) -patient has cardiac history included cardiac stents and cardiology consult was consulted -because patient had initial elevated troponins of 0.115 (which has not gotten any higher and no apparent chest pain) admitting hospitalist team started patient on IV heparin and because of elevated D-Dimer at [facility] and also proposed to rule out pulmonary embolism but CTA cannot be performed due to Chronic kidney disease -The is No DVT within the right or left lower extremity on 11/30/18 ultrasound. However pre-test embolism probability could be consider high given history of Membranous glomerulonephritis and history of elevated kappa and lambda concerning to need further work-up of possible myeloma by hematology/oncology -patient's resting echocardiogram on 12/01/18 with relatively normal ejection fraction of 50 to 55% with subtle inferior wall motion abnormality that was also noted on outpatient exercise stress test in July -advise patient to be adherent to CPAP for obstructive sleep apnea - NUCLEAR MEDICINE VENTILATION/PERFUSION SCAN on 12/01/18 Moderate-sized mismatch defect within the right mid lung on anterior projection. This study is intermediate probability for pulmonary embolus. -on IV heparin drip, first dose of warfarin 5 mg given on 12/02/18 but will continue to hold coumadin for now as nephrology service would like patient to get renal biopsy while on heparin drip for protection from the pulmonary embolism and before being fully anticoagulated alone on oral anticoagulation (2) Acute pulmonary embolism without acute cor pulmonale: Anticoagulated by Anticoagulation Therapy -NUCLEAR MEDICINE VENTILATION/PERFUSION SCAN on 12/01/18 Moderate-sized mismatch defect within the right mid lung on anterior projection. This study is intermediate probability for pulmonary embolus. -on IV heparin drip, first dose of warfarin 5 mg given on 12/02/18 but will continue to hold coumadin for now as nephrology service would like patient to get renal biopsy while on heparin drip for protection from the pulmonary embolism and before being fully anticoagulated alone on oral anticoagulation (3) ASHLEE (obstructive sleep apnea): -patient apparently had been evaluated in the past for obstructive sleep apnea but he no longer used it after one time he got respiratory infection from CPAP and because the mask was very tight and the positive pressure made it hard for him to breathe. -trial of CPAP in the hospital (4) CAD (coronary artery disease), [place] coronary artery: -Chronic coronary heart disease, status post stent to the proximal LAD in 2006, this was patent with 30% in-stent restenosis at the time of most recent cardiac catheterization at the [facility] in August, -Abnormal exercise stress echocardiogram 07/29/2018 suggestive of ischemia which prompted cardiac catheterization 08/20/2017 with findings of 80% mid LAD stenosis, 90% obtuse marginal stenosis both of which were treated with drug- eluting stents. A residual 90% stenosis of diagonal branch #2 of the LAD has been treated medically -to avoid potential shortness of breath from Brillinta, cardiology service discontinue Brilinta in favor of clopidogrel 75 mg daily. Patient received 300 mg x 1 clopidogrel on 12/02/18 and to get 75 mg daily clopidogrel starting on 12/02/18 -continue clopidogrel 75 mag daily Aortic Aneurysm -as per cardiology consultation review: -4.7 cm ascending thoracic aortic aneurysm most recently measured on noncontrast CT of the chest 08/13/2018, [facility] -3.2 cm abdominal aortic aneurysm (5) Elevated troponin: -patient had initial elevated troponins of 0.115 (which has not gotten any higher and no apparent chest pain) (6) Asthma: -continue advair -duoneb prn, incentive spirometry (7) Dyslipidemia, goal LDL below 70: -Patient intolerant to statins -On Repatha injections as outpatient -lipid panel on this admission with improved LDL of 93 (8) Elevated TSH: suspected Hypothyroidism -TSH 7.55, Free T4 0.65, no prior outpatient comparison -recommend repeat in 2 weeks -if these repeat labs are still with abnormally high TSH and low T4 then can consider a diagnosis of Hypothyroidism -was started on 25 mcg Levothyroxine by admitting hospitalist, continue (9) Elevated WBC count: Leukocytosis -patient received steroids at [facility] prior to hospital transfer to [facility] for which the admission WBC is 16K -WBC uptrending to 22 K on 12/02/18, is afebrile to date (10) HTN (hypertension): -cardiology switched beta barbra from atenolol to metoprolol -cardiology started hydralazine 10 mg TID and isosorbide 5 mg TID (11) CKD (chronic kidney disease) stage 3, GFR 30-59 ml/min: Membranous glomerulonephritis Acute kidney injury on Chronic Kidney Disease stage 3 vs Chronic Kidney Disease stage IV -Chronic kidney disease with history of remote diagnosis of membranous glomerulonephritis, 9 g of proteinuria, and recent decline in kidney function. Patient's calculated GFR has been in the range of 47 to 50 mL/min/m, creatinine 1.5-1.6 at the time of his cardiac catheterization in August,, and most recently on 10/18/2018, has recently worsened as of November with measurement of creatinine of 2.4 on 11/25/2018, calculated GFR 28 mL/min/m -Patient has been following with nephrology Dr. Adame due to progressively worse kidney function, GFR and significant proteinuria Recently had losartan, metformin and amlodipine discontinued due to worsening renal function -hx of membranous glomerular nephritis in 2003 he had edema and proteinuria and high cholesterol. At that time had renal biopsy and treated with brief course of steroid. Had extensive outpatient testing including hep B, C, HIV, Bence-Grant protein, immunofixation, complement C4, C3, c-ANCA, p-ANCA, ASHOK. Work-up mostly negative except elevated kappa and lambda Patient is being referred to hematology for further work-up of myeloma -12/03/18: Nephrology discussed with patient about benefits to get renal biopsy while on heparin drip for protection from pulmonary embolism before fully anticoagulated on warfarin. Patient agrees for transfer to [facility] in [place] for renal biopsy. [facility] hospitalist Dr. Guerrero is the accepting physician (12) Abnormal CT scan, chest: CT scan 07/29/18 comments of "4.7 cm ascending thoracic aortic aneurysm; Mediastinal adenopathy. Mild bilateral central peribronchial thickening; Incompletely characterized liver hypodensities and left renal hypodensity; Right paravertebral soft tissue thickening at the level of the mid thorax;Questionable wall thickening of the coronary arteries; Asymmetric appearance of the pancreas; Differential diagnosis includes a multi systemic disorder like IgG4 disease. Lymphoma is also a consideration." (13) T2DM (type 2 diabetes mellitus): Type II Diabetes Mellitus without senior living use of insulin HbA1c 11/12/18 was 6.3 HbA1c 12/01/18 is 6.4 -Lantus/novolog per protocol -hold metformin, monitor renal function (14) Hypokalemia: -admission serum potassium 3.2 on 11/30/18 -hypokalemia is corrected after potassium supplementation (15) DVT prophylaxis: -on IV heparin drip, first dose of warfarin 5 mg given on 12/02/18 but will continue to hold coumadin for now as nephrology service would like patient to get renal biopsy while on heparin drip for protection from the pulmonary embolism and before being fully anticoagulated alone on oral anticoagulation Disposition: Nephrology discussed with patient about benefits to get renal biopsy while on heparin drip for protection from pulmonary embolism before fully anticoagulated on warfarin. Patient agrees for transfer to [facility] for renal biopsy. [facility] hospitalist Dr. Guerrero is the accepting physician Main Diagnosis: Dyspnea on Exertion, Acute Pulmonary Embolism without Core Pulmonale, Anticoagulated by Anticoagulation Therapy, History of Membranous glomerulonephritis (suspect nephrotic syndrome); Acute kidney injury on Chronic Kidney Disease stage 3 vs Chronic Kidney Disease stage IV, Hypertension, suspected Hypothyroidism, Type II Diabetes Mellitus without senior living use of insulin Subjective no acute chest pain. breathing on room air. patient got oxymetazoline for nasal congestion. He has epistaxis that resolved. he is awake and alert and continues to breath on room air alone. no focal deficits. eating the meals. no vomiting. denies blood in stool or in urination. Nephrology discussed with patient about benefits to get renal biopsy while on heparin drip for protection from pulmonary embolism before fully anticoagulated on warfarin. Patient agrees for transfer to [facility] for renal biopsy. [facility] hospitalist Dr. Guerrero is the accepting physician Physical Exam Constitutional: comfortable Eyes: PERRL, conjunctivae normal, anicteric sclerae EOM intact bilaterally ENMT: external ear and nose normal, oropharynx normal Neck: normal visual inspection Respiratory: normal respiratory effort, lungs clear to auscultation Cardiovascular: Rate/Rhythm: regular rate and regular rhythm Gastrointestinal (Abdomen): normal bowel sounds, soft, nontender, no hepatosplenomegaly Musculoskeletal: Head/Neck/Chest: normocephalic and head atraumatic Neurologic: PERRL, EOMI, accommodation nl, no face palsy, no dysarthria CN's II-XI intact bilaterally Psychiatric: A+Ox3, euthymic affect Results & Data Vital Signs (Past 12 Hours) Vital Signs Temp Pulse Pulse Resp BP BP Pulse Ox 12/03/18 11:11 36.3 C L 78 18 158/85 H 97 12/03/18 07:33 89 12/03/18 07:27 36.5 C 93 H 18 158/59 H 97 12/03/18 04:11 36.8 C 74 19 170/107 H 176/103 H 91 (1) CAD (coronary artery disease), [place] coronary artery Associated angina: with stable angina [place] vs. transplanted heart: [place] heart Qualified Code(s): I25.118 - Atherosclerotic heart disease of [place] coronary artery with other forms of angina pectoris (2) HTN (hypertension) Hypertension type: essential hypertension Qualified Code(s): I10 - Essential (primary) hypertension
[2018-12-03] MEDS ORDERED: OXYCODONE HCL IR 5 MG TAB (IMMEDIATE RELEASE) PO PRN (14:06)
[2018-12-03] MEDS ORDERED: OXYCODONE HCL IR 5 MG TAB (IMMEDIATE RELEASE) PO STA (14:06)
--- NOTE | 2018-12-03 14:48 | Discharge Summary ---
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 and daughter are at bedside patient initially presented to ED this morning secondary significant increased shortness of breath and inability to catch breath. Upon arrival to ED patient was noted to have significantly elevated blood pressure systolically greater than 200, EKG revealed normal sinus rhythm, elevated creatinine 2.2, elevated d-dimer 1.5, elevated BNP 6000. Chest x-ray unremarkable. Unable to obtain CTA of chest given elevated creatinine. Patient was recommended for transfer due to the above. He did receive DuoNeb therapy, IV methylprednisolone and IV hydralazine while in the ED. Patient complains of worsening shortness of breath that has been becoming progressively worse over the past 6 to 9 months. As noted above patient had PCI in 08/2018 due to abnormal stress echo. He was hopeful that after having stent placed his symptoms would improve. He had similar symptoms back in 2006 prior to his previous stent, and after stent felt much improved. This time he has been continuing to have progressive dyspnea on exertion as well as shortness of breath at rest. He has easy fatigability even with little activity. 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 Even using a broom makes him short of breath. Over the past 4 days he has noticed increased sinus congestion, rhinorrhea and moist cough, but unable to produce. He has felt feverish and had night sweats. Complains of increased lower extremity edema that is present all day, not improved in a.m. Denies any significant weight loss or weight gain. Denies orthopnea but does complain PND. Denies documented fever, chills, lightheadedness, dizziness, syncope, chest pain, palpitations, hemoptysis, nausea, vomiting, abdominal pain, dysuria, increased urgency or frequency with urination, hematuria, melena, hematochezia. He admits to being noncompliant with his medications. Only taking aspirin 3 times a week, has been intermittently taking Brilinta. He has also been taking atenolol off-and-on secondary to headaches. He takes his Advair intermittently, but has been using albuterol nebulizer treatment at home more frequently. He uses nebulizer treatment this morning prior to being seen at ED, without significant relief. He has not been taking anything [id number]. Admission Exam Per Admitting Provider Constitutional: WD/WN, vitals as above, M, appears ill, NAD, sitting up in bed, pleasant, conversing easily Head: Normocephalic, Atraumatic Eyes: PERRL, conjunctivae normal, anicteric sclerae ENMT: external ear and nose normal, oropharynx normal Neck: trachea midline, no thyromegaly normal visual inspection Respiratory: normal respiratory effort, lungs clear to auscultation with inspiratory and expiratory wheeze/rhonchi throughout, no prolonged expiratory phase,no rales. Normal insp/exp effort, no accessory muscle use on 2L of O2 via NC Cardiovascular: RRR, no murmur, +1 pretibial edema R >L Vessels: no JVD or carotid bruit Chest: normal inspection of chest Abdomen: normal bowel sounds, soft, nontender, no hepatosplenomegaly Musculoskeletal: no cyanosis or clubbing, extremities motor strength 5/5 Skin: no rashes, warm and dry normal turgor Neurologic: PERRL, EOMI, accommodation nl, no face palsy, no dysarthria CN's II-XI intact bilaterally and moves all extremities Psychiatric: A+Ox3, euthymic affect Lymphatic: no cervical or axillary lymphadenopathy : deferred Principal Diagnosis Dyspnea on Exertion, Acute Pulmonary Embolism without Core Pulmonale, Anticoagulated by Anticoagulation Therapy, History of Membranous glomerulonephritis (suspect nephrotic syndrome); Acute kidney injury on Chronic Kidney Disease stage 3 vs Chronic Kidney Disease stage IV, Hypertension, Obstructive sleep apnea, suspected Hypothyroidism, Type II Diabetes Mellitus without adjunct faculty for medical terminology use of insulin, Leukocytosis Discharge Exam Constitutional comfortable Eyes PERRL, conjunctivae normal, anicteric sclerae EOM intact bilaterally ENMT external ear and nose normal, oropharynx normal Neck normal visual inspection Respiratory normal respiratory effort, lungs clear to auscultation Cardiovascular Rate/Rhythm: regular rate and regular rhythm Gastrointestinal (Abdomen) normal bowel sounds, soft, nontender, no hepatosplenomegaly Musculoskeletal Head/Neck/Chest: normocephalic and head atraumatic Neurologic PERRL, EOMI, accommodation nl, no face palsy, no dysarthria CN's II-XI intact bilaterally Psychiatric A+Ox3, euthymic affect Discharge Data Allergies Allergy/AdvReac Type Severity Reaction Status Date / Time No Known Allergies Allergy Verified 08/20/18 09:34 Consultations 11/30/18 18:56 Consult Cardiology Routine 12/02/18 16:32 Consult Nephrology Routine 12/03/18 14:47 Burn CD for patient Stat Ordered Studies 11/30/18 18:39 US venous doppler LE Urgent Hospital Course (1) Shortness of breath: -multiple differentials were proposed at time of hospital presentation which patient was transferred from [facility] on 11/30/18 to [facility] -to summarize, this is a patient whose chief complaint with shortness of breath on moderate exertion (such as moderate activities such as walking the distance from driveway to house or when putting bags into the car) -patient has cardiac history included cardiac stents and cardiology consult was consulted -because patient had initial elevated troponins of 0.115 (which has not gotten any higher and no apparent chest pain) admitting hospitalist team started patient on IV heparin and because of elevated D-Dimer at [facility] and also proposed to rule out pulmonary embolism but CTA cannot be performed due to Chronic kidney disease -The is No DVT within the right or left lower extremity on 11/30/18 ultrasound. However pre-test embolism probability could be consider high given history of Membranous glomerulonephritis and history of elevated kappa and lambda concerning to need further work-up of possible myeloma by hematology/oncology -patient's resting echocardiogram on 12/01/18 with relatively normal ejection fr action of 50 to 55% with subtle inferior wall motion abnormality that was also noted on outpatient exercise stress test in July -advise patient to be adherent to CPAP for obstructive sleep apnea - NUCLEAR MEDICINE VENTILATION/PERFUSION SCAN on 12/01/18 Moderate-sized mismatch defect within the right mid lung on anterior projection. This study is intermediate probability for pulmonary embolus. -on IV heparin drip, first dose of warfarin 5 mg given on 12/02/18 but will continue to hold coumadin for now as nephrology service would like patient to get renal biopsy while on heparin drip for protection from the pulmonary embolism and before being fully anticoagulated alone on oral anticoagulation (2) Acute pulmonary embolism without acute cor pulmonale: Anticoagulated by Anticoagulation Therapy -NUCLEAR MEDICINE VENTILATION/PERFUSION SCAN on 12/01/18 Moderate-sized mismatch defect within the right mid lung on anterior projection. This study is intermediate probability for pulmonary embolus. -on IV heparin drip, first dose of warfarin 5 mg given on 12/02/18 but will continue to hold coumadin for now as nephrology service would like patient to get renal biopsy while on heparin drip for protection from the pulmonary embolism and before being fully anticoagulated alone on oral anticoagulation (3) ASHLEE (obstructive sleep apnea): -patient apparently had been evaluated in the past for obstructive sleep apnea but he no longer used it after one time he got respiratory infection from CPAP and because the mask was very tight and the positive pressure made it hard for him to breathe. -trial of CPAP in the hospital (4) CAD (coronary artery disease), huslia coronary artery: -Chronic coronary heart disease, status post stent to the proximal LAD in 2006, this was patent with 30% in-stent restenosis at the time of most recent cardiac catheterization at the [facility] in August, -Abnormal exercise stress echocardiogram 07/29/2018 suggestive of ischemia which prompted cardiac catheterization 08/20/2017 with findings of 80% mid LAD sten osis, 90% obtuse marginal stenosis both of which were treated with drug-eluting stents. A residual 90% stenosis of diagonal branch #2 of the LAD has been treated medically -to avoid potential shortness of breath from Brillinta, cardiology service discontinue Brilinta in favor of clopidogrel 75 mg daily. Patient received 300 mg x 1 clopidogrel on 12/02/18 and to get 75 mg daily clopidogrel starting on 12/02/18 -continue clopidogrel 75 mag daily Aortic Aneurysm -as per cardiology consultation review: -4.7 cm ascending thoracic aortic aneurysm most recently measured on noncontrast CT of the chest 08/13/2018, [facility] -3.2 cm abdominal aortic aneurysm (5) Elevated troponin: -patient had initial elevated troponins of 0.115 (which has not gotten any higher and no apparent chest pain) (6) Asthma: -continue advair -duoneb prn, incentive spirometry (7) Dyslipidemia, goal LDL below 70: -Patient intolerant to statins -On Repatha injections as outpatient -lipid panel on this admission with improved LDL of 93 (8) Elevated TSH: suspected Hypothyroidism -TSH 7.55, Free T4 0.65, no prior outpatient comparison -recommend repeat in 2 weeks -if these repeat labs are still with abnormally high TSH and low T4 then can consider a diagnosis of Hypothyroidism -was started on 25 mcg Levothyroxine by admitting hospitalist, continue (9) Elevated WBC count: Leukocytosis -patient received steroids at [facility] prior to hospital transfer to [facility] for which the admission WBC is 16K -WBC uptrending to 22 K on 12/02/18, is afebrile to date, downtrending to 16 K on 12/03/18 (10) HTN (hypertension): -cardiology switched beta barbra from atenolol to metoprolol -cardiology started hydralazine 10 mg TID and isosorbide 5 mg TID (11) CKD (chronic kidney disease) stage 3, GFR 30-59 ml/min: Membranous glomerulonephritis Acute kidney injury on Chronic Kidney Disease stage 3 vs Chronic Kidney Disease stage IV -Chronic kidney disease with history of remote diagnosis of membranous glomerulonephritis, 9 g of proteinuria, and recent decline in kidney function. Patient's calculated GFR has been in the range of 47 to 50 mL/min/m, creatinine 1.5-1.6 at the time of his cardiac catheterization in August,, and most recently on 10/18/2018, has recently worsened as of November with measurement of creatinine of 2.4 on 11/25/2018, calculated GFR 28 mL/min/m -Patient has been following with nephrology Dr. Adame due to progressively worse kidney function, GFR and significant proteinuria Recently had losartan, metformin and amlodipine discontinued due to worsening renal function -hx of membranous glomerular nephritis in 2003 he had edema and proteinuria and high cholesterol. At that time had renal biopsy and treated with brief course of steroid. Had extensive outpatient testing including hep B, C, HIV, Bence-Grant protein, immunofixation, complement C4, C3, c-ANCA, p-ANCA, ASHOK. Work-up mostly negative except elevated kappa and lambda Patient is being referred to hematology for further work-up of myeloma -12/03/18: Nephrology discussed with patient about benefits to get renal biopsy while on heparin drip for protection from pulmonary embolism before fully anticoagulated on warfarin. Patient agrees for transfer to [facility] in [place] for renal biopsy. [facility] hospitalist Dr. Guerrero is the accepting physician (12) Abnormal CT scan, chest: CT scan 07/29/18 comments of "4.7 cm ascending thoracic aortic aneurysm; Mediastinal adenopathy. Mild bilateral central peribronchial thickening; Incompletely characterized liver hypodensities and left renal hypodensity; Right paravertebral soft tissue thickening at the level of the mid thorax;Questionable wall thickening of the coronary arteries; Asymmetric appearance of the pancreas; Differential diagnosis includes a multi systemic disorder like IgG4 disease. Lymphoma is also a consideration." (13) T2DM (type 2 diabetes mellitus): Type II Diabetes Mellitus without adjunct faculty for medical terminology use of insulin HbA1c 11/12/18 was 6.3 HbA1c 12/01/18 is 6.4 -Lantus/novolog per protocol -hold metformin, monitor renal function (14) Hypokalemia: -admission serum potassium 3.2 on 11/30/18 -hypokalemia is corrected after potassium supplementation (15) DVT prophylaxis: -on IV heparin drip, first dose of warfarin 5 mg given on 12/02/18 but will continue to hold coumadin for now as nephrology service would like patient to get renal biopsy while on heparin drip for protection from the pulmonary embolism and before being fully anticoagulated alone on oral anticoagulation Disposition: Nephrology discussed with patient about benefits to get renal biopsy while on heparin drip for protection from pulmonary embolism before fully anticoagulated on warfarin. Patient agrees for transfer to [facility] in [place] for renal biopsy. [facility] hospitalist Dr. Guerrero is the accepting physician Main Diagnosis: Dyspnea on Exertion, Acute Pulmonary Embolism without Core Pulmonale, Anticoagulated by Anticoagulation Therapy, History of Membranous glomerulonephritis (suspect nephrotic syndrome); Acute kidney injury on Chronic Kidney Disease stage 3 vs Chronic Kidney Disease stage IV, Hypertension, suspected Hypothyroidism, Type II Diabetes Mellitus without adjunct faculty for medical terminology use of insulin Total Time Total Time Spent Total Time Spent (In Minutes): 90 Total Time Includes: Examination of the Patient, Discharge Planning, Medication Reconciliation and Communication With Other Providers Discharge Plan Discharge Items Patient Disposition: Transfer Acute Care Hospital Reason For Visit: JENNIFER, ELEVATED D-DIMER Discharge Diagnosis: Dyspnea on Exertion, Acute Pulmonary Embolism without Core Pulmonale, Anticoagulated by Anticoagulation Therapy, History of Membranous glomerulonephritis (suspect nephrotic syndrome); Acute kidney injury on Chronic Kidney Disease stage 3 vs Chronic Kidney Disease stage IV, Hypertension, Obstructive sleep apnea, suspected Hypothyroidism, Type II Diabetes Mellitus without adjunct faculty for medical terminology use of insulin, Leukocytosis Condition on Discharge: Fair Activity: Per Instructions section Non-emergency contact: Primary Care Provider, [employer] Call non-emergency contact if: you have any medication questions Follow-up/Referrals: Hunter Kendrick MD [Primary Care Provider] - Diet: Carb Consistent or DM2, Heart Healthy and Low Sodium (2gm) Addtl Attending Provider Instructions: Nephrology discussed with patient about benefits to get renal biopsy while on heparin drip for protection from pulmonary embolism before fully anticoagulated on warfarin. Patient agrees for transfer to [facility] in [place] for renal biopsy. [facility] hospitalist Dr. Guerrero is the accepting physician Patient currently on heparin drip IV as 31 ml/hr (1550 units per hour); continue on transport to [facility] unless this is adjusted to different doses depending in on going PTT labs Pending Studies at Discharge: No Stand-Alone Forms: My [facility] [place] [employer] Skilled Items Patient informed of condition?: Yes DNR: No Discharge Level of Care: Other Communicable Disease: No Discharge Prognosis: Stable Lines: Peripheral IV Urinary Catheter: No Medications and DC Order Prescriptions: New hydralazine 10 mg Tablet 10 mg PO TID 30 Days Qty: 90 RF: 0 clopidogrel 75 mg Tablet 75 mg PO QAM 30 Days Qty: 30 RF: 0 isosorbide dinitrate 5 mg Tablet 5 mg PO TID@0700,1200,1700 30 Days Qty: 90 RF: 0 metoprolol tartrate 25 mg Tablet 25 mg PO Q8 30 Days Qty: 90 RF: 0 levothyroxine 25 mcg tablet 25 mcg PO DAILY 30 Days Qty: 30 RF: 0 Continued metformin 500 mg Tablet 500 mg PO DAILY RF: 0 fluticasone propion-salmeterol [Advair Diskus] 250-50 mcg/dose Blister With Device 1 inh INHALATION BID RF: 0 aspirin [Aspir-81] 81 mg Tablet,Delayed Release (Dr/Ec) 81 mg PO MOWEFR RF: 0 albuterol sulfate [ProAir HFA] 90 mcg/actuation Hfa Aerosol Inhaler 2 puff INHALATION Q6H PRN (Reason: Wheezing) RF: 0 fluticasone propionate [Flonase Allergy Relief] 50 mcg/actuation Tyler,Suspension 2 spray INTRANASAL DAILY RF: 0 Repatha SureClick 140 mg/mL Pen Injector See Rx Instructions .ROUTE .COMPLEX RF: 0 Discontinued Brilinta 90 mg Tablet 90 mg PO BID Qty: 60 RF: 6 atenolol 25 mg Tablet 25 mg PO BID RF: 0 Discharge Orders: Discharge Order (Routine); Ordered 12/03/18 Ordered By: King Kapadia/Other Patient Handouts: Diabetes Type 2 Coping Admission Data Admit Date/Time: 11/30/18 16:06 Attending Provider: King Valdez Admit Provider: Da Foster Primary Care Provider: Hunter Kendrick Other Providers: Rufino Rosario ; Katy Marti
[2018-12-03] MEDS ORDERED: WARFARIN SOD 5 MG TAB PO SCH (16:00)
[2018-12-03] MEDS ORDERED: HYDROmorphone INJ 0.5 MG/0.5 ML SYR IV STA (17:16)
[2018-12-03] MEDS ORDERED: LABETALOL HCL IV 5 MG/ML 20ML IV STA (17:16)
[2018-12-03] MEDS: Heparin IV Low Dose *NO* Bolus IV SCH (19:03)
[2018-12-03 22:56] LABS: Creatinine Urine Random 89.6 mg/dl
[2018-12-03 22:58] LABS: Protein Creatinine Ratio Urine 13.4 (0-0.2); Total Protein Urine Random 1204.6 mg/dl (0-11.9)
== END 2018-12-04 01:00 | disposition short-term general hospital (02) | DRG 176 ==
LOC: 2N 16:06 → SUATTDRO 16:06